=== PATIENT | female | born 1950 | race Caucasian/White ===

== ENCOUNTER 2017-07-08 08:33 | Outpatient (CLI) | payer MEDICARE, BC ==
[2017-07-08 12:20] LABS: BASOPHILS % (AUTO) 0.9 %; EOSINOPHILS # (AUTO) 0.1 10^3/uL (0.0-0.7); EOSINOPHILS % (AUTO) 2.8 %; HCT - HEMATOCRIT 40.4 % (37.0-47.0); HGB - HEMOGLOBIN 13.4 g/dL (12.0-16.0); LYMPHOCYTES # (AUTO) 1.2 10^3/uL (1.5-3.5); LYMPHOCYTES % (AUTO) 30.6 %; MEAN CORPUSCULAR HEMOGLOBIN 30.1 pg (27.0-31.0); MEAN CORPUSCULAR HGB CONC 33.2 g/dL (32.0-36.0); MEAN CORPUSCULAR VOLUME 90.9 fL (81.0-99.0); MONOCYTES # (AUTO) 0.4 10^3/uL (0.0-1.0); MONOCYTES % (AUTO) 8.9 %; NEUTROPHILS # (AUTO) 2.3 10^3/uL (1.5-6.6); NEUTROPHILS % (AUTO) 56.8 %; NUCLEATED RED BLOOD CELLS AUTO 0.1 /100WBC; RED BLOOD COUNT 4.45 10^6/uL (4.20-5.40); RED CELL DISTRIBUTION WIDTH 13.9 % (12.0-15.0); UNCORRECTED WHITE BLOOD COUNT 4.1 x10^3/uL; WHITE BLOOD COUNT 4.1 x10^3/uL (4.8-10.8)
[2017-07-08 12:42] LABS: ALBUMIN/GLOBULIN RATIO 1.4 (1.0-2.2); BILIRUBIN,TOTAL 1.3 mg/dL (0.2-1.0); BUN - BLOOD UREA NITROGEN 22 mg/dL (6-20); CALCIUM 9.1 mg/dL (8.5-10.3); CARBON DIOXIDE - CO2 27 mmol/L (21-32); CHLORIDE 105 mmol/L (101-111); CHOL/HDL RATIO 2.5 (<4.4); CHOLESTEROL 184 mg/dL; CREATININE 0.7 mg/dL (0.4-1.0); GFR - MDRD 84 (>89); GLUCOSE 97 mg/dL (70-100); HDL CHOLESTEROL 74 mg/dL; LDL/HDL RATIO 1.3 (<4.4); POTASSIUM 3.6 mmol/L (3.5-5.0); SODIUM 139 mmol/L (135-145); TOTAL PROTEIN 7.8 g/dL (6.7-8.2); TRIGLYCERIDES 67 mg/dL; VLDL CHOLESTEROL 13 mg/dL
== END 2017-07-08 08:34 | disposition home or self-care (01) ==
LOC: LAB.F 08:33
PROVIDERS: ATTEND Internal Medicine
DX: D89.89 Other specified disorders involving the immune mechanism, not elsewhere classified (principal); E78.5 Hyperlipidemia, unspecified; E04.9 Nontoxic goiter, unspecified; Z72.89 Other problems related to lifestyle
CPT/HCPCS: 36415; 80053; 80061; 85025; 86803

== ENCOUNTER 2017-07-23 13:48 | Outpatient (CLI) | payer MEDICARE, BC ==
--- NOTE | 2017-07-28 13:27 | Mammography Report ---
DATE OF SERVICE: 07/23/2017 DIGITAL SCREENING MAMMOGRAM: 07/23/2017 CLINICAL INDICATION: A 67-year-old, with history of late childbearing, family history of breast canc er, history of benign biopsy, for screening. COMPARISON: 07/2016, 07/2015, 04/2014, 01/2013, 12/2011, 11/2010, 11/2009. TECHNIQUE: Routine CC and MLO projections were obtained of the breasts. FINDINGS: The breasts again demonstrate heterogeneously dense fibroglandular parenchyma bilaterally. Coarse and punctate, typically benign calcifications are present. Post-biopsy changes in the right breast a re stable. No suspicious masses, clustered microcalcifications, or regions of architectural distortion are identified. IMPRESSION: Benign findings. RECOMMENDATIONS: Routine annual screening unless otherwise clinically indicated. BIRADS category 2 - Benign findings. STANDARD QUALIFYING STATEMENTS 1. This examination was reviewed with the aid of Computed-Aided Detection (CAD). 2. A negative or benign imaging report should not delay biopsy if clinically suspicious findings are present. Consider surgical consultation if warranted. More than 5% of cancers are not identified by imaging. 3. Dense breasts may obscure an underlying neoplasm. TD: 07/27/2017 19:00
== END 2017-07-23 13:49 | disposition home or self-care (01) ==
LOC: DI.S 13:48
PROVIDERS: ATTEND Internal Medicine
DX: Z12.31 Encounter for screening mammogram for malignant neoplasm of breast (principal); Z80.3 Family history of malignant neoplasm of breast
CPT/HCPCS: 77067

== ENCOUNTER 2018-01-03 15:31 | Outpatient (CLI) | payer MEDICARE, BC ==
[2018-01-03 15:53] LABS: BASOPHILS % (AUTO) 0.2 %; HGB - HEMOGLOBIN 13.3 g/dL (12.0-16.0); LYMPHOCYTES # (AUTO) 0.5 10^3/uL (1.5-3.5); LYMPHOCYTES % (AUTO) 4.2 %; MEAN CORPUSCULAR HGB CONC 33.6 g/dL (32.0-36.0); MEAN CORPUSCULAR VOLUME 89.4 fL (81.0-99.0); MEAN PLATELET VOLUME 8.2 fL (7.9-10.8); MONOCYTES # (AUTO) 0.5 10^3/uL (0.0-1.0); MONOCYTES % (AUTO) 3.9 %; NEUTROPHILS # (AUTO) 11.3 10^3/uL (1.5-6.6); NEUTROPHILS % (AUTO) 91.7 %; PLT - PLATELET COUNT 203 10^3/uL (130-450); RED BLOOD COUNT 4.43 10^6/uL (4.20-5.40); RED CELL DISTRIBUTION WIDTH 13.3 % (12.0-15.0); WHITE BLOOD COUNT 12.3 x10^3/uL (4.8-10.8)
[2018-01-03 16:03] LABS: ALBUMIN 3.5 g/dL (3.2-5.5); ALBUMIN/GLOBULIN RATIO 0.7 (1.0-2.2); BILIRUBIN,TOTAL 1.6 mg/dL (0.2-1.0); CALCIUM 8.8 mg/dL (8.5-10.3); CREATININE 1.1 mg/dL (0.4-1.0); TOTAL PROTEIN 8.2 g/dL (6.7-8.2)
--- NOTE | 2018-01-03 19:56 | XRAY Report ---
CHEST X-RAY TWO VIEWS: 01/03/2018 HISTORY: Fever. COMPARISON: None. FINDINGS: There is a large area of airspace disease in the right upper lobe consistent with pneumonia. Followup to complete clearing to exclude other underlying processes is suggested. The left lung is clear. There is no pleural effusion or pneumothorax. Heart size is top normal. There is moderately severe degenerative change in the spine with a thoracolumbar junction dextroscoliosis. IMPRESSION: RIGHT UPPER LOBE PNEUMONIA. FOLLOWUP TO COMPLETE RADIOGRAPHIC CLEARING IS SUGGESTED. TD: 01/03/2018 16:16
== END 2018-01-03 15:32 | disposition home or self-care (01) ==
LOC: LAB 15:31
PROVIDERS: ATTEND Internal Medicine
DX: R50.9 Fever, unspecified (principal); J18.9 Pneumonia, unspecified organism
CPT/HCPCS: 36415; 71046; 80053; 85025; 87040

== ENCOUNTER 2018-01-05 15:17 | Outpatient (CLI) | payer MEDICARE, BC ==
[2018-01-05 17:57] LABS: BASOPHILS % (AUTO) 0.4 %; EOSINOPHILS % (AUTO) 0.4 %; HGB - HEMOGLOBIN 12.2 g/dL (12.0-16.0); LYMPHOCYTES # (AUTO) 0.7 10^3/uL (1.5-3.5); LYMPHOCYTES % (AUTO) 8.1 %; MEAN CORPUSCULAR HEMOGLOBIN 29.9 pg (27.0-31.0); MEAN CORPUSCULAR HGB CONC 33.5 g/dL (32.0-36.0); MEAN CORPUSCULAR VOLUME 89.2 fL (81.0-99.0); MEAN PLATELET VOLUME 8.9 fL (7.9-10.8); MONOCYTES # (AUTO) 0.4 10^3/uL (0.0-1.0); NEUTROPHILS % (AUTO) 86.1 %; PLT - PLATELET COUNT 204 10^3/uL (130-450); RED BLOOD COUNT 4.07 10^6/uL (4.20-5.40); RED CELL DISTRIBUTION WIDTH 13.4 % (12.0-15.0); WHITE BLOOD COUNT 8.1 x10^3/uL (4.8-10.8)
[2018-01-05 18:08] LABS: ALBUMIN 2.8 g/dL (3.2-5.5); ALBUMIN/GLOBULIN RATIO 0.6 (1.0-2.2); BILIRUBIN,TOTAL 0.8 mg/dL (0.2-1.0); CALCIUM 8.3 mg/dL (8.5-10.3); CREATININE 0.9 mg/dL (0.4-1.0); TOTAL PROTEIN 7.4 g/dL (6.7-8.2)
== END 2018-01-05 15:18 | disposition home or self-care (01) ==
LOC: LAB.F 15:17
PROVIDERS: ATTEND Physician Assistant Medical
DX: J18.9 Pneumonia, unspecified organism (principal)
CPT/HCPCS: 36415; 80053; 85025

== ENCOUNTER 2018-01-10 14:13 | Outpatient (CLI) | payer MEDICARE, BC ==
[2018-01-10 18:44] LABS: ALBUMIN 3.2 g/dL (3.2-5.5); ALBUMIN/GLOBULIN RATIO 0.7 (1.0-2.2); BILIRUBIN,TOTAL 0.8 mg/dL (0.2-1.0); CALCIUM 8.6 mg/dL (8.5-10.3); CREATININE 0.7 mg/dL (0.4-1.0); TOTAL PROTEIN 7.9 g/dL (6.7-8.2)
== END 2018-01-10 14:14 | disposition home or self-care (01) ==
LOC: LAB.S 14:13
PROVIDERS: ATTEND Physician Assistant Medical
DX: J18.9 Pneumonia, unspecified organism (principal); E87.6 Hypokalemia
CPT/HCPCS: 36415; 80053

== ENCOUNTER 2018-01-18 12:37 | Outpatient (CLI) | payer MEDICARE, BC ==
--- NOTE | 2018-01-18 16:21 | XRAY Report ---
Procedure Date: 01/18/2018 Accession Number: [id number] / [id number] Procedure: XR - Chest 2 View X-Ray CPT Code: 61327 FULL RESULT: EXAM: Chest 2 View X-Ray DATE: 01/18/2018 1:25 PM CLINICAL HISTORY: COMMUNITY ACQUIRED PNEUMONIA for follow-up COMPARISON: 01/03/2018 TECHNIQUE: 2 views. FINDINGS: Lungs/Pleura: Improved aeration right upper lobe with minimal residual infiltrate versus scarring still present.. Clear left lung. No pneumothorax or pleural effusion. Normal volumes. Mediastinum: Heart size normal. Mild residual deformity right hilum.. Other: Thoracolumbar junction dextroscoliosis with degenerative change. IMPRESSION: Significantly improved chest x-ray compared with 01/03/2018. Residual right upper lobe and hilar changes are still present, question scarring versus residual infiltrate. Suggest follow up repeat chest x-ray in 4-6 weeks.. RADIA
== END 2018-01-18 12:38 | disposition home or self-care (01) ==
LOC: DI 12:37
PROVIDERS: ATTEND Physician Assistant Medical
DX: J18.9 Pneumonia, unspecified organism (principal)
CPT/HCPCS: 71046

== ENCOUNTER 2018-03-01 13:25 | Outpatient (CLI) | payer MEDICARE, BC ==
--- NOTE | 2018-03-01 15:58 | XRAY Report ---
Procedure Date: 03/01/2018 Accession Number: [id number] / [id number] Procedure: XR - Chest 2 View X-Ray CPT Code: 54551 FULL RESULT: EXAM: Chest 2 View X-Ray DATE: 03/01/2018 2:20 PM CLINICAL HISTORY: COMMUNITY ACQUIRED PNEUMONIA COMPARISON: 01/18/2018. TECHNIQUE: 2 views. FINDINGS: Lungs/Pleura: No focal opacities evident. No pneumothorax or pleural effusion. Normal volumes. Mediastinum: Heart and mediastinal contours are unremarkable. Other: None. IMPRESSION: Interval resolution of previously seen consolidation. Normal study. RADIA
== END 2018-03-01 13:26 | disposition home or self-care (01) ==
LOC: DI 13:25
PROVIDERS: ATTEND Physician Assistant Medical
DX: J18.9 Pneumonia, unspecified organism (principal)
CPT/HCPCS: 71046

== ENCOUNTER 2018-08-08 08:46 | Day surgery (SDC) | payer MEDICARE, BC ==
[2018-08-08] MEDS ORDERED: LACTATED RINGERS 1,000 ML IV ONE (09:05)
[2018-08-08] MEDS ORDERED: fentaNYL 250 MCG/5 ML VIAL IVP ONE (09:19)
[2018-08-08] MEDS ORDERED: MIDAZOLAM 2 MG/2 ML VIAL IVP ONE (09:19)
[2018-08-08 10:22] VITALS: BP 96/54
== END 2018-08-08 08:47 | disposition home or self-care (01) ==
LOC: SDS 08:46
PROVIDERS: ATTEND Surgery
PROC: 0DJD8ZZ Inspection of Lower Intestinal Tract, Via Natural or Artificial Opening Endoscopic (ICD-10-PCS; principal; 2018-08-08 09:45)
DX: Z12.11 Encounter for screening for malignant neoplasm of colon (principal); K64.8 Other hemorrhoids; M35.9 Systemic involvement of connective tissue, unspecified; E78.00 Pure hypercholesterolemia, unspecified; Z79.82 Long term (current) use of aspirin
CPT/HCPCS: G0121; J7120

== ENCOUNTER 2018-09-20 11:05 | Outpatient (CLI) | payer MEDICARE, BC ==
[2018-09-20 18:01] LABS: BASOPHILS # (AUTO) 0.1 10^3/uL (0.0-0.1); BASOPHILS % (AUTO) 1.3 %; EOSINOPHILS # (AUTO) 0.2 10^3/uL (0.0-0.7); HGB - HEMOGLOBIN 12.9 g/dL (12.0-16.0); LYMPHOCYTES # (AUTO) 1.3 10^3/uL (1.5-3.5); MEAN CORPUSCULAR HEMOGLOBIN 30.4 pg (27.0-31.0); MEAN CORPUSCULAR HGB CONC 32.8 g/dL (32.0-36.0); MEAN CORPUSCULAR VOLUME 92.8 fL (81.0-99.0); MEAN PLATELET VOLUME 8.3 fL (7.9-10.8); MONOCYTES # (AUTO) 0.3 10^3/uL (0.0-1.0); MONOCYTES % (AUTO) 7.1 %; NEUTROPHILS # (AUTO) 2.8 10^3/uL (1.5-6.6); NEUTROPHILS % (AUTO) 59.6 %; PLT - PLATELET COUNT 239 10^3/uL (130-450); RED BLOOD COUNT 4.24 10^6/uL (4.20-5.40); RED CELL DISTRIBUTION WIDTH 14.1 % (12.0-15.0); WHITE BLOOD COUNT 4.6 x10^3/uL (4.8-10.8)
[2018-09-20 18:18] LABS: ALBUMIN 4.1 g/dL (3.2-5.5); ALBUMIN/GLOBULIN RATIO 1.2 (1.0-2.2); ALKALINE PHOSPHATASE 75 IU/L (42-121); ALT ALANINE AMINOTRANSFERASE 14 IU/L (10-60); AST ASPARTATE AMINOTRANSFERASE 21 IU/L (10-42); BILIRUBIN,TOTAL 1.2 mg/dL (0.2-1.0); BUN - BLOOD UREA NITROGEN 16 mg/dL (6-20); CALCIUM 8.9 mg/dL (8.5-10.3); CARBON DIOXIDE - CO2 25 mmol/L (21-32); CHLORIDE 100 mmol/L (101-111); CHOL/HDL RATIO 2.5 (<4.4); CHOLESTEROL 162 mg/dL; CREATININE 0.7 mg/dL (0.4-1.0); GFR - MDRD 84 (>89); GLUCOSE 82 mg/dL (70-100); HDL CHOLESTEROL 65 mg/dL; LDL CHOLESTEROL,CALCULATED 89 mg/dL; LDL/HDL RATIO 1.4 (<4.4); SODIUM 137 mmol/L (135-145); TOTAL PROTEIN 7.4 g/dL (6.7-8.2); VLDL CHOLESTEROL 8 mg/dL
== END 2018-09-20 11:06 | disposition home or self-care (01) ==
LOC: LAB.F 11:05
PROVIDERS: ATTEND Internal Medicine
DX: E87.6 Hypokalemia (principal); E78.5 Hyperlipidemia, unspecified; D89.89 Other specified disorders involving the immune mechanism, not elsewhere classified; Z79.899 Other long term (current) drug therapy; E04.9 Nontoxic goiter, unspecified
CPT/HCPCS: 36415; 80053; 80061; 83721; 84443; 85025

== ENCOUNTER 2019-06-05 08:32 | Outpatient (CLI) | payer MEDICARE, OTHER | END 2019-06-05 08:33 | disposition home or self-care (01) | LOC: LAB.S 08:32 | PROVIDERS: ATTEND Family Medicine | DX: Z02.1 Encounter for pre-employment examination (principal) | CPT/HCPCS: 36415; 86735; 86762; 86765; 86787 ==

== ENCOUNTER 2020-11-07 14:31 | Outpatient (CLI) | payer MEDICARE, OTHER ==
--- NOTE | 2020-11-07 16:28 | DEXA Report ---
PROCEDURE: Dexa Spine and/or Hip INDICATIONS: POST MENOPAUSAL TECHNIQUE: Dual energy x-ray absorptiometry (DXA) was performed on a [employer] System. Regions measur ed are the AP Spine, femoral neck, and if needed forearm. COMPARISON: None. FINDINGS: Lumbar Spine: Bone Mineral Density 1.077 g/cm/cm,T score -0.9, normal Left Hip: Bone Mineral Density 0.798 g/cm/cm,T score -1.7, osteopenia Left Femoral Neck: Bone Mineral Density 0.828 g/cm/cm, T score -1.5, osteopenia (T score greater or equal to -1.0: NORMAL) (T score from -1.1 to -2.4: OSTEOPENIA) (T score less than or equal to -2.5 to: OSTEOPOROSIS) Impression: Osteopenia. Patients with diagnosis of osteoporosis or osteopenia should have regular bone mineral density assess ment. For those eligible for Medicare, routine testing is allowed once every 2 years. Testing frequ ency can be increased for patients who have rapidly progressing disease or for those who are receivin g medical therapy to restore bone mass. Reviewed by: Lorena Don MD, PhD on 11/07/2020 4:27 PM PDT Approved by: Lorena Don MD, PhD on 11/07/2020 4:27 PM PDT Station ID: [id number]
== END 2020-11-07 14:32 | disposition home or self-care (01) ==
LOC: DI 14:31
PROVIDERS: ATTEND Family Medicine
DX: M85.89 Other specified disorders of bone density and structure, multiple sites (principal)

== ENCOUNTER 2020-11-13 14:57 | Outpatient (CLI) | payer MEDICARE, OTHER ==
--- NOTE | 2020-11-15 12:37 | Mammography Report ---
BILATERAL DIGITAL SCREENING MAMMOGRAM 3D/2D: 11/13/2020 CLINICAL: Family history of breast cancer. Family history of breast cancer. Comparison is made to exams dated: 07/23/2017 mammogram, 07/20/2016 mammogram, and 07/06/2015 mammogr am - [facility]. The tissue of both breasts is heterogeneously dense. This may low er the sensitivity of mammography. There is a possible mass in the left breast at 12 o'clock middle depth. No other significant masses, calcifications, or other findings are seen in either breast. IMPRESSION: INCOMPLETE: NEEDS ADDITIONAL IMAGING EVALUATION The possible mass in the left breast is indeterminate. Additional views with possible ultrasound are recommended. This exam was interpreted at Station ID: [id number]. NOTE: For mammograms, a report in lay terms will be sent to the patient. Approximately 15% of breast malignancies will not be visualized mammographically. In the management of a palpable breast mass, a negative mammogram must not discourage biopsy of a clinically suspicious lesion. Electronically Signed By: Lb sanchez/graham:11/14/2020 09:35:02 ACR BI-RADS Category 0: Incomplete 3340F PARENCHYMAL PATTERN: (D) - The breast(s) demonstrate(s) heterogeneously dense fibroglandular almas rodriguez. BI-RADS CATEGORY: (0) - 0 Mammo and US [id number] Immediate follow-up LATERALITY: (L)
== END 2020-11-13 14:58 | disposition home or self-care (01) ==
LOC: DI.S 14:57
DX: Z12.31 Encounter for screening mammogram for malignant neoplasm of breast (principal); Z80.3 Family history of malignant neoplasm of breast; N64.89 Other specified disorders of breast

== ENCOUNTER 2020-12-10 09:24 | Outpatient (CLI) | payer MEDICARE, OTHER ==
--- NOTE | 2020-12-12 08:30 | Ultrasound Report ---
LIMITED ULTRASOUND OF LEFT BREAST AND AXILLA: 12/10/2020 CLINICAL: Patient returns today to evaluate a focal asymmetry in the left breast. Comparison is made to exams dated: 12/10/2020 mammogram, 11/13/2020 mammogram, 07/23/2017 mammogram, 1 09/20/2015 mammogram, 07/06/2015 mammogram, and 04/16/2014 mammogram - [facility]. Color flow ultrasound of the left breast 12 o'clock, and axilla regions was performed on the areas o f interest. Herr scale images of the real-time examination were reviewed. There is a 1 cm x 0.8 cm x 0.9 cm oval mass with a circumscribed and microlobulated margin in the lef t breast at 12 o'clock middle depth 5 cm from the nipple. This oval mass is hypoechoic. This correl ates with mammography findings. Color flow imaging demonstrates that there is vascularity present. No suspicious enlarged lymph nodes were seen sonographically in the left axilla. IMPRESSION: SUSPICIOUS OF MALIGNANCY The 1 cm x 0.8 cm x 0.9 cm oval mass in the left breast is suspicious of malignancy. An ultrasound g uided biopsy is recommended. The findings were discussed with the patient at the conclusion of the study by Dr. Puente. This exam was interpreted at Station ID: [id number]. Electronically Signed By: Shane Collins M.D. ddp/:12/10/2020 10:38:57 Ultrasound BI-RADS: 4 Suspicious for malignancy BI-RADS CATEGORY: (4) - 4 None [id number] Immediate follow-up LATERALITY: ()
--- NOTE | 2020-12-12 08:30 | Mammography Report ---
UNILATERAL LEFT DIGITAL DIAGNOSTIC MAMMOGRAM 3D/2D: 12/10/2020 CLINICAL: Patient returns today to evaluate a focal asymmetry in the left breast. Comparison is made to exams dated: 11/13/2020 mammogram, 07/23/2017 mammogram, 07/20/2016 mammogram, 07/06/2015 mammogram, and 04/16/2014 mammogram - [facility]. The tissue of left [address] is heterogeneously dense. This may lower the sensitivity of mammography. There is a 1 cm oval equal density mass with a circumscribed margin in the left breast at 12 o'clock middle depth. No other significant masses or calcifications are seen in the breast. IMPRESSION: INCOMPLETE: NEEDS ADDITIONAL IMAGING EVALUATION The 1 cm oval equal density mass in the left breast is indeterminate. An ultrasound is recommended. Ultrasound will be performed immediately following the current exam. This exam was interpreted at Station ID: [id number]. NOTE: For mammograms, a report in lay terms will be sent to the patient. Approximately 15% of breast malignancies will not be visualized mammographically. In the management of a palpable breast mass, a negative mammogram must not discourage biopsy of a clinically suspicious lesion. Electronically Signed By: Shane Collins M.D. ddp/:12/10/2020 10:13:11 ACR BI-RADS Category 0: Incomplete 3340F PARENCHYMAL PATTERN: (D) - The breast(s) demonstrate(s) heterogeneously dense fibroglandular parjorgey ma. BI-RADS CATEGORY: (0) - 0 Ultrasound [id number] Immediate follow-up LATERALITY: (B)
== END 2020-12-10 09:25 | disposition home or self-care (01) ==
LOC: DI 09:24
PROVIDERS: ATTEND Family Medicine
DX: N63.25 Unspecified lump in the left breast, overlapping quadrants (principal)

== ENCOUNTER 2020-12-19 12:28 | Outpatient (CLI) | payer MEDICARE, OTHER ==
[~2020-12-19 12:28] MED LIST: BUFFERED LIDOCAINE 10 ML SYRINGE ONE; LIDOCAINE MPF 1%-EPI 1:200000 30 ML VIAL ONE
[2020-12-19] MEDS ORDERED: BUFFERED LIDOCAINE 10 ML SYRINGE IU ONE (15:50)
[2020-12-19] MEDS ORDERED: LIDOCAINE MPF 1%-EPI 1:200000 30 ML VIAL SUBQ ONE (16:00)
--- NOTE | 2020-12-23 11:51 | Ultrasound Report ---
ULTRASOUND GUIDED BIOPSY LEFT BREAST USING VACUUM DEVICE WITH POST ULTRASOUND IMAGIN12/19/2020 CLINICAL: Left breast mass. PATIENT CONSENT: Risks (minor bleeding, infection, vasovagal reaction and repeat procedure), benefits and alternatives were explained to the patient and written informed consent was obtained. Correlation is made to exams dated: 12/10/2020 ultrasound, 12/10/2020 mammogram, 11/13/2020 mammogram, 07/23/2017 mammogram, 07/20/2016 mammogram, and 07/06/2015 mammogram - [facility]. An ultrasound guided biopsy using real-time ultrasound was performed for the abnormality located in t he left breast at 12 o'clock posterior depth. The skin was prepped in the usual manner. A biopsy ne edle was placed adjacent to the abnormality under ultrasound guidance. Once the needle was documente d to be in the correct location, 5 specimen wereobtained using an automated biopsy gun. The specimen was sent to the laboratory for pathological analysis. IMPRESSION: ULTRASOUND GUIDED BIOPSY MALIGNANT Ultrasound guided biopsy of the mass in the left breast posterior depth was successful. Post biopsy clip could not be placed (the hospital was out of the biopsy marker device). The lesion is readily vi sible on ultraound, and ultrasound-guided wire localization could be performed prior to surgical exci duran. Pathology indicates malignant invasive ductal carcinoma. Pathology results are concordant with imaging findings. A surgical/oncologic consultation is recommended. This exam was interpreted at Station ID: [id number]. Fadia Schwarz M.D. fx,ar/:12/23/2020 09:55:32 BI-RADS CATEGORY: () - Unspecified - other recall n/a LATERALITY: (B)
== END 2020-12-19 12:29 | disposition home or self-care (01) ==
LOC: DI 12:28
PROVIDERS: ATTEND Family Medicine
DX: C50.812 Malignant neoplasm of overlapping sites of left female breast (principal); Z17.0 Estrogen receptor positive status [ER+]
CPT/HCPCS: 19083; 88305; 88360

== ENCOUNTER 2021-02-07 13:07 | Outpatient (CLI) | payer MEDICARE, OTHER ==
--- NOTE | 2021-02-10 07:08 | Ultrasound Report ---
LIMITED ULTRASOUND OF LEFT BREAST AND AXILLA: 02/07/2021 CLINICAL: Patient returns today to evaluate a focal asymmetry in the left breast seen by MRI 01-25-21. Comparison is made to exams dated: 12/19/2020 ultrasound biopsy, 12/10/2020 ultrasound, 12/10/2020 mamm ogram, 11/13/2020 mammogram, 07/23/2017 mammogram, and 07/20/2016 mammogram - [facility]. Color flow and real-time ultrasound of the left breast 3-5 o'clock, and axilla regions were performe d on the areas of interest. Herr scale images of the real-time examination were reviewed. There is a 1.7 cm x 1.2 cm x 1.7 cm irregular mass with an indistinct margin in the left breast at 4 o'clock anterior depth. This irregular mass is hypoechoic. This correlates with breast MRI findings . Color flow imaging demonstrates that there is an adjacent vascularity. There also is a lymph node with eccentric cortical thickening measuring up to 0.5 cm in the left axil la. This lymph node is of mixed echogenicity. Color flow imaging demonstrates that there is vascula rity present. IMPRESSION: SUSPICIOUS OF MALIGNANCY The 1.7 cm x 1.2 cm x 1.7 cm irregular mass in the left breast at 4 o'clock anterior depth is suspici ous of malignancy. An ultrasound guided biopsy is recommended. The lymph node with eccentric cortical thickening in the left axillary tail is suspicious of malignan cy. An ultrasound guided biopsy is recommended. The findings were discussed with the patient at the conclusion of the study by Dr. Garcia. This exam was interpreted at Station ID: [id number]. Electronically Signed By: Shane Collins M.D. ddp/:02/07/2021 15:31:36 Ultrasound BI-RADS: 4 Suspicious for malignancy BI-RADS CATEGORY: (4) - 4 None [id number] Immediate follow-up LATERALITY: ()
== END 2021-02-07 13:08 | disposition home or self-care (01) ==
LOC: DI 13:07
PROVIDERS: ATTEND Surgery
DX: C50.919 Malignant neoplasm of unspecified site of unspecified female breast (principal)

== ENCOUNTER 2021-02-14 12:52 | Outpatient (CLI) | payer MEDICARE, OTHER ==
[2021-02-14] MEDS ORDERED: BUFFERED LIDOCAINE 10 ML SYRINGE ONE (13:19)
[2021-02-14] MEDS ORDERED: LIDOCAINE MPF 1%-EPI 1:200000 30 ML VIAL ONE (13:19)
[2021-02-14] MEDS ORDERED: BUFFERED LIDOCAINE 10 ML SYRINGE IU ONE (16:19)
[2021-02-14] MEDS ORDERED: LIDOCAINE MPF 1%-EPI 1:200000 30 ML VIAL SUBQ ONE (17:00)
--- NOTE | 2021-02-17 08:15 | Mammography Report ---
UNILATERAL LEFT DIGITAL DIAGNOSTIC MAMMOGRAM 3D/2D: 02/14/2021 CLINICAL: Post left breast ultrasound biopsy, clip placment imaging. Comparison is made to exams dated: 02/07/2021 ultrasound - [facility], 01/25/2021 maurilio ast MRI - [facility], 12/19/2020 ultrasound biopsy, 12/10/2020 ultrasound, 12/10/2020 mammogram, and 11/13/2020 mammogram - [facility]. The tissue of left breast is heterogeneousl y dense. This may lower the sensitivity of mammography. There is a marker clip in the appropriate position in the left breast 4 oclock seen on the craniocaud al view only. This marker clip placement is at the biopsy site. IMPRESSION: POST PROCEDURE MAMMOGRAM FOR MARKER PLACEMENT There was a successful marker clip placement in the left breast 4 oclock seen on the craniocaudal vie w only. This exam was interpreted at Station ID: [id number]. NOTE: For mammograms, a report in lay terms will be sent to the patient. Approximately 15% of breast malignancies will not be visualized mammographically. In the management of a palpable breast mass, a negative mammogram must not discourage biopsy of a clinically suspicious lesion. Electronically Signed By: Emily Puente M.D. [facility]/:02/14/2021 16:34:16 ACR BI-RADS Category Post-procedure mammogram for marker placement PARENCHYMAL PATTERN: (D) - The breast(s) demonstrate(s) heterogeneously dense fibroglandular almas rodriguez. BI-RADS CATEGORY: () - Unspecified - other recall n/a LATERALITY: (B)
--- NOTE | 2021-02-18 11:15 | Ultrasound Report ---
ULTRASOUND GUIDED BIOPSY LEFT BREAST WITH MARKING DEVICE INSERTED: 02/14/2021 CLINICAL: Left breast mass. PATIENT CONSENT: Risks (minor bleeding, infection, vasovagal reaction and repeat procedure), benefits and alternatives were explained to the patient and written informed consent was obtained. Correlation is made to exams dated: 02/07/2021 ultrasound - [facility] and 01/25/2021 breast MRI - [facility]. An ultrasound guided biopsy using real-time ultrasound was performed for the microlobulated irregular shaped mass located in the left breast at 4 o'clock. This was described on the previous mammography , ultrasound, and MRI reports. The skin was prepped in the usual manner. Topical and local anesthet ic was administered to the access site. A small incision was made in the breast. The abnormality wa s approached from the lateral aspect. A biopsy needle was placed adjacent to the abnormality under u ltrasound guidance. Once the needle was documented to be in the correct location, a specimen was obt ained using a BARD biopsy device. A titanium clip was inserted into the biopsy cavity. The specimen was sent to the laboratory for pathological analysis. It is noted that the axillary lymph node was not biopsied, secondary to lack of safe access due to vessel surrounding the node. IMPRESSION: ULTRASOUND GUIDED BIOPSY BENIGN Ultrasound guided biopsy of the mass in the left breast at 4 o'clock was successful. Pathology indica christina benign fibrous mastopathy. Pathology results are possibly discordant with MRI findings. Given nayeli rankin's history of biopsy proven malignancy at the 12 o'clock position, an MRI guided biopsy is recom mended to exclude an additional focus of disease at the 4 o'clock position. Findings were communicated to Dr. Pedro's office on 02/18/21 at 9:50 AM. This exam was interpreted at Station ID: [id number]. Emily Collins M.D. [facility],ddp/:02/18/2021 09:53:22 BI-RADS CATEGORY: () - None [id number] Immediate follow-up LATERALITY: ()
== END 2021-02-14 12:53 | disposition home or self-care (01) ==
LOC: DI 12:52
PROVIDERS: ATTEND Surgery
DX: R92.8 Other abnormal and inconclusive findings on diagnostic imaging of breast (principal); C50.812 Malignant neoplasm of overlapping sites of left female breast; Z17.0 Estrogen receptor positive status [ER+]
CPT/HCPCS: 19083; 38505

== ENCOUNTER 2021-04-14 08:03 | Observation (INO) | payer MEDICARE, OTHER ==
[2021-04-14] MEDS ORDERED: LACTATED RINGERS 1,000 ML IV ONE (08:25)
[2021-04-14] MEDS ORDERED: BUFFERED LIDOCAINE 10 ML SYRINGE ONE (08:28)
[2021-04-14] MEDS ORDERED: REGADENOSON 0.4 MG/5 ML SYRINGE IVP ONE (09:21)
[2021-04-14] MEDS ORDERED: CEFAZOLIN SODIUM IN 0.9 % NACL 0 GM/0 ML BAG IV ONE (09:28)
[2021-04-14] MEDS ORDERED: SODIUM CHLORIDE 0.9% 1,000 ML IV ONE (11:55)
[2021-04-14] MEDS ORDERED: SODIUM CHLORIDE FLUSH 0.9% 10 ML SYRINGE IVP PRN (12:07)
[2021-04-14] MEDS ORDERED: LEVOCETIRIZINE DIHYDROCHLORIDE 5 MG PO PRN (12:11)
--- NOTE | 2021-04-14 12:15 | SURGERY HX AND PHYSICAL(T) ---
Surgical History & Physical - Chief Complaint/HPI Chief Complaint: Lily is a very pleasant 71-year-old lady who was admitted this morning to - PMH/PSH/Social Hx Does the pt have a hx of MRSA?: No Eyes, Ears, Nose, Throat: None Cardiovascular: High cholesterol Respiratory: None Skin: None Endocrine/Autoimmune: Other Gastrointestinal: GERD Urinary: None Musculoskeletal: Osteoarthritis, Rheumatoid arthritis, Chronic back pain Psychiatric: None General: Colonoscopy Orthopedic: Knee replacement Eyes Ears Nose Throat (EENT): Cataracts Smoking Status: Never smoker - Home Meds and Allergies Home Medications: Calcium Citrate/Vitamin D3 [Citracal-Vit D3 200 mg-250 Tab] 1 tab PO BID 08/08/18 Hydroxychloroquine [Plaquenil] 200 mg PO DAILY 08/08/18 Omeprazole 40 mg PO DAILY 03/05/21 Pravastatin [Pravachol] 40 mg PO DAILY 03/05/21 Levocetirizine Dihydrochloride [Xyzal] 1 tab PO PRN PRN 04/14/21 Allergies/Adverse Reactions: Allergies Allergy/AdvReac Type Severity Reaction Status Date / Time Sulfa (Sulfonamide AdvReac Edema Verified 04/14/21 08:46 Antibiotics) - Review of Systems Neurological: Dizziness, Syncope, Weakness - Vital Signs Heart Rate: 72 Blood Pressure: 97/53 Temperature: 36.6 C Respiratory Rate: 17 O2 Saturation: 95 Weight (kg): 82 kg Height: 1.63 m - Physical Exam General Appearance: positive: No acute distress, Alert Eyes Bilatera: positive: Normal inspection, PERRL, EOMI ENT: positive: ENT inspection nml, Pharynx nml, No signs of dehydration Neck: positive: Nml inspection, Thyroid nml, No JVD Respiratory: positive: Chest non-tender, No respiratory distress, Breath sounds nml Cardiovascular: positive: Regular rate & rhythm, Bradycardia Peripheral Pulses: positive: 0 Abdomen: positive: Non-tender, Nml bowel sounds Back: positive: Nml inspection. negative: CVA tenderness (R), CVA tenderness (L) Skin: positive: Color nml Extremities: positive: Non-tender Neurologic/Psychiatric: positive: Oriented x3 - Patient Review Patient Review: Problems were reviewed with the patient during this visit. Medications were reviewed with the patient during this visit. Allergies were reviewed this patient during this visit. Pertinent Tests Reviewed: All pertitent test for this patient were reviewed. - Assessment & Plan Assessment and Plan: Syncope during radiologic procedure prior to operative intervention for left breast cancer. I have already spoken with Dr. Viktoriya Laird. Surgery is deb eduled for tomorrow pending cardiac evaluation.She will be admitted on telemetry.
[2021-04-14] MEDS ORDERED: BUFFERED LIDOCAINE 10 ML SYRINGE IU ONE (12:24)
[2021-04-14 12:49] LABS: BASOPHILS % (AUTO) 0.7 %; EOSINOPHILS # (AUTO) 0.1 10^3/uL (0.0-0.7); EOSINOPHILS % (AUTO) 2.3 %; HCT - HEMATOCRIT 38.3 % (37.0-47.0); HGB - HEMOGLOBIN 12.3 g/dL (12.0-16.0); LYMPHOCYTES # (AUTO) 0.9 10^3/uL (1.5-3.5); LYMPHOCYTES % (AUTO) 14.2 %; MEAN CORPUSCULAR HEMOGLOBIN 29.6 pg (27.0-31.0); MEAN CORPUSCULAR HGB CONC 32.1 g/dL (32.0-36.0); MEAN CORPUSCULAR VOLUME 92.3 fL (81.0-99.0); MEAN PLATELET VOLUME 9.4 fL (7.9-10.8); MONOCYTES # (AUTO) 0.5 10^3/uL (0.0-1.0); MONOCYTES % (AUTO) 7.9 %; NEUTROPHILS # (AUTO) 4.5 10^3/uL (1.5-6.6); NEUTROPHILS % (AUTO) 74.6 %; PLT - PLATELET COUNT 227 10^3/uL (130-450); RED BLOOD COUNT 4.15 10^6/uL (4.20-5.40); RED CELL DISTRIBUTION WIDTH 12.7 % (12.0-15.0); WHITE BLOOD COUNT 6.1 x10^3/uL (4.8-10.8)
[2021-04-14 13:02] LABS: ALBUMIN/GLOBULIN RATIO 1.4 (1.0-2.2); BILIRUBIN,TOTAL 1.2 mg/dL (0.2-1.0); MAGNESIUM 2.1 mg/dL (1.7-2.8); POTASSIUM 3.9 mmol/L (3.5-5.0); TOTAL PROTEIN 6.9 g/dL (6.7-8.2)
--- NOTE | 2021-04-14 13:49 | PHARMACY PROGRESS NOTE ---
- Best Possible Medication History Admit Date and Time: 04/14/21 1207 Processed by: Nursing Medication History completed: Yes Patient Interview: Completed (MED REC COMPLETED BY NURSING) As the person ultimately responsible for medication therapy, providers are able to order a medication from an existing home medication list in [facility] via the "Reconcile Routine" prior to Confirmation of that medication by application support consultant. Such practice is discouraged except when the physician, in their clinical judgment, deems that a medical need exists for a medication without regard to previous use.
[2021-04-14] MEDS: SODIUM CHLORIDE 0.9% 1,000 ML IV SCH ×2 (14:43→21:38)
--- NOTE | 2021-04-14 15:49 | CONSULTATION NOTE ---
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 The patient presented for same-day surgery and started by having wires inserted in the diagnostic imaging department under mammography guidance in order to undergo sentinel node nuclear imaging and then breast surgery by Dr. Pedro. Garrett oglesby in radiology during the mammogram and insertion of wires, the patient had a syncopal episode that was witnessed by Dr. Melvin of radiology and the telecom field technician. A CODE BLUE was called and this hospitalist responded. I saw the patient who was pale, supine in a radiology gurney but legs were dangling and got the history that the patient could tell she was about to pass out and then slumped backward onto the soft gurney. She admitted that she had "great out". She was nauseated at the time. She said that she has had fainting spells before. Her blood pressure at the scene was 90/50 with a heart rate of 70. The surgeon Dr Pedro, was notified by me and Dr Pedro has admitted the rimma ent to Observation status with consultation requested from the Hospitalist service for syncope evaluation and for preoperative evaluation. The patient is being seen now in a MedSur bed on telemetry. She is pink and warm and dry and no longer nauseated. She is able to give me a detailed history: The patient has been fainting since childhood. She always faints at the site of needles and sometimes at the site of blood. When she had a breast biopsy several months ago she fainted with that 1. The patient underwent bilateral knee surgeries in 2019 and for preop evaluation an EKG was done that was abnormal. This led to a stress test done in late 2018. It was abnormal (I do not have the details). She was seen for clearance by Dr. Jesse Brown of [facility]. Dr. Brown cleared her for surgery and advised that after having elective knee replacements (which were done successfully 6 months apart), she should eventually have an angiogram. The angiogram was done in May 2019, and showed normal coronary arteries. She has never needed to see that Wire Lather again (confirmed at Dr Brown's office). Patient denies ever having a work-up for frequent syncope like a Holter monitor or to tilt table test. She says she "always runs low blood pressure". She is not on any medicine that w ould drop her blood pressure. She "tries to avoid needles". She is active, walks several miles 3 times a week and gardens actively. With this she has no chest pain, dyspnea, denies PND, palpitations or leg edema. 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 which gives her fatigue and joint pains/swelling - Past Surgical History General: reports: Colonoscopy Ortho: reports: Knee replacement /AIR CONDITIONER INSTALLER HELPER: reports: section, Other HEENT: reports: Cataracts - Family & Social History Family History: Mother: (Brother of muscular dystrophy at age 70), Father: , Sister: Cancer (Breast CA and recent Dx with lupus-like disorder), Brother: , Other family: Alive and Well (Her 30-year-old son also has frequent syncope) Family History Comment/Other: The patient lives with her and has 2 adult children, a natural son who is 30 and an adopted adult daughter. Smoker, drinks rare alcohol, no illicit drug use Living arrangement: At home Living Situation: With spouse/s.o. - Substance History Use: Uses substance without health or social issues: NONE - POLST Patient has POLST: No POLST Status: Full Code Meds/Allgy - Home Medications Home Medications: Ambulatory Orders Medication Instructions Recorded Confirmed Calcium Citrate/Vitamin D3 1 tab PO BID 08/08/18 04/14/21 [Citracal-Vit D3 200 mg-250 Tab] Hydroxychloroquine [Plaquenil] 200 mg PO DAILY 08/08/18 04/14/21 Omeprazole 40 mg PO DAILY 03/05/21 04/14/21 Pravastatin [Pravachol] 40 mg PO DAILY 03/05/21 04/14/21 Levocetirizine Dihydrochloride 1 tab PO PRN PRN 04/14/21 04/14/21 [Xyzal] - Allergies Allergies/Adverse Reactions: Allergies Allergy/AdvReac Type Severity Reaction Status Date / Time Sulfa (Sulfonamide AdvReac Edema Verified 04/14/21 08:46 Antibiotics) Review of Systems - Cardiovascular Cariovascular: reports: Syncope - All Other Systems All Other Systems: reports: Reviewed and negative Exam - Vital Signs Vital Signs: Vital Signs x48h Temp Pulse Resp BP Pulse Ox 04/14/21 12:30 36.6 C 88 19 107/56 L 98 04/14/21 12:19 36.6 C 72 17 97/53 L 95 04/14/21 12:15 77 15 104/49 L 97 04/14/21 12:05 36.6 C 72 17 97/53 L 95 04/14/21 12:00 71 19 94/48 L 95 04/14/21 11:55 74 21 98/50 L 96 04/14/21 11:50 36.2 C L 72 19 99/52 L 94 04/14/21 11:45 67 18 93/52 L 92 04/14/21 11:42 64 16 96/49 L 93 04/14/21 11:40 36.1 C L 68 17 72/49 L 92 04/14/21 08:20 36.6 C 96 16 125/72 97 - Physical Exam General Appearance: positive: No acute distress, Alert Eyes Bilateral: positive: Normal inspection, PERRL, EOMI ENT: positive: ENT inspection nml, No signs of dehydration Neck: positive: Nml inspection, Thyroid nml, No JVD Respiratory: positive: No respiratory distress, Breath sounds nml Cardiovascular: positive: Regular rate & rhythm, No murmur Abdomen: positive: Non-tender, Nml bowel sounds, No distention Skin: positive: Warm, Dry Extremities: positive: Non-tender, Nml appearance (No joint swelling), No pedal edema Neurologic/Psychiatric: positive: Oriented x3 (Non-focal) Conclusion/Plan - Problem List (1) Syncope Conclusion/Plan: This patient describes lifelong syncope. Her symptoms are typically when she sees a needle or blood which is a vasovagal form of syncope. The management of this is to avoid volume depletion to prevent orthostasis and occasionally needing medications (such as Midodrine for low blood pressure) or permanent pacemaker insertion to prevent extreme bradycardia. She has no evidence of IHSS on her echo which would also cause syncopal events. Will plan to monitor on telemetry to watch for arrhythmias. Begin midodrine since she already has "low blood pressure naturally". Follow orthostatic vital signs. Obtain BMP. Avoid prerenal azotemia. Pain a complete Echo evaluation. Begin IV fluids perioperatively if she will be n.p.o. Outpatient Holter monitor and/or a Zio patch monitor for a week along with tilt table testing would be advised. She needs these done with a referral back to a Cardiology. (2) Abnormal EKG Conclusion/Plan: Patient claims that she had an abnormal EKG found on preop evaluation before knee surgery 3 years ago. That led to a stress test done in Jul 2018, which was abnormal. That led to an angiogram in May 2019, which showed normal coronary arteries. She therefore has an EKG that will always look abnormal. Because of her low blood pressure and syncopal events, she does not need to repeat the stress portion of a Lexiscan (vasodilator) stress test, since it may cause syncope. In addition, she has already proven that she can withstand general anesthesia by having 2 orthopedic surgeries since the time of the abnormal stress testing. If we do have her undergo a stress test and get abnormal results, we would consider that a false positive test again, as the 2018 stress test turned out. She has no anginal symptoms and has a low risk score on preop evaluation, therefore, the stress test has been canceled. (3) Pre-op evaluation Conclusion/Plan: Her revised cardiac risk index for preoperative risk assessment = 1 (Class II risk) which would theoretically give her a 6% 30-day risk of , [place] or cardiac arrest. Her 1-point, however, comes from having "history of abnormal exercise test". In fact she had a normal angiogram and the stress test was a false positive test. She therefore has 0 points (which is a class I risk) and gives her 3.9% 330-day risk of , [place] or cardiac arrest. I discussed the above with Dr. Pedro and she will likely proceed with her breast procedure tomorrow. Her risks were explained. The patient is agreeable with th e plan. (4) Breast cancer Conclusion/Plan: Given the low risk described above #3 and having successfully had general anesthesia, I recommend she proceed with her breast cancer work-up and management and surgery. Midodrine has been started and should be given before tomorrow's procedures that do require needles. (5) Connective tissue disorder Conclusion/Plan: She describes this as a "lupus-like syndrome". She is on Plaquenil and Xyzal for this which has controlled her joint symptoms significantly. Because of the se meds she is somewhat immunosuppressed. Continue management as will be recommended by Oncology - Lab Results Fish Bones: 04/14/21 12:44 04/14/21 12:44
[2021-04-14 16:11] LABS: B. PARAPERTUSSIS- RESP PCR PAN NOT DETECTED; B. PERTUSSIS- RESP PCR PANEL NOT DETECTED; C. PNEUMONIAE- RESP PCR PANEL NOT DETECTED; CORONAVIRUS 229E-RESP PCR NOT DETECTED; CORONAVIRUS HKU1-RESP PCR NOT DETECTED; CORONAVIRUS NL63-RESP PCR NOT DETECTED; CORONAVIRUS OC43-RESP PCR NOT DETECTED; HUMAN METAPNEUMOVIRUS NOT DETECTED; INFLUENZA A- RESP PCR PANEL NOT DETECTED; INFLUENZA B - RESP PCR PANEL NOT DETECTED; M. PNEUMONIAE- RESP PCR PANEL NOT DETECTED; PARAINFLUENZA VIRUS 1 NOT DETECTED; PARAINFLUENZA VIRUS 2 NOT DETECTED; PARAINFLUENZA VIRUS 3 NOT DETECTED; PARAINFLUENZA VIRUS 4 NOT DETECTED; RHINOVIRUS/ENTEROVIRUS NOT DETECTED; RSV- RESP PCR PANEL NOT DETECTED; SARS-CoV-2 -RESP PCR PANEL NOT DETECTED
[2021-04-14] MEDS: SODIUM CHLORIDE FLUSH 0.9% 10 ML SYRINGE IVP SCH (16:30)
[2021-04-14] MEDS: MIDODRINE 2.5 MG TABLET PO SCH (16:39)
[2021-04-14] MEDS ORDERED: ATORVASTATIN 40 MG TABLET PO SCH (21:00)
[2021-04-15] MEDS: SODIUM CHLORIDE FLUSH 0.9% 10 ML SYRINGE IVP SCH ×2 (00:51→08:40)
[2021-04-15 05:52] LABS: HCT - HEMATOCRIT 39.6 % (37.0-47.0); HGB - HEMOGLOBIN 12.6 g/dL (12.0-16.0); MEAN CORPUSCULAR HGB CONC 31.8 g/dL (32.0-36.0); MEAN CORPUSCULAR VOLUME 91.2 fL (81.0-99.0); MEAN PLATELET VOLUME 9.5 fL (7.9-10.8); RED BLOOD COUNT 4.34 10^6/uL (4.20-5.40); RED CELL DISTRIBUTION WIDTH 12.8 % (12.0-15.0); WHITE BLOOD COUNT 6.3 x10^3/uL (4.8-10.8)
[2021-04-15 06:01] LABS: CALCIUM 8.9 mg/dL (8.5-10.3); CREATININE 0.6 mg/dL (0.4-1.0); POTASSIUM 3.8 mmol/L (3.5-5.0)
[2021-04-15] MEDS ORDERED: PANTOPRAZOLE 40 MG TABLET PO SCH (07:00)
[2021-04-15] MEDS: SODIUM CHLORIDE 0.9% 1,000 ML IV SCH (08:26)
[2021-04-15] MEDS: MIDODRINE 2.5 MG TABLET PO SCH (08:26)
[2021-04-15] MEDS ORDERED: HYDROXYCHLOROQUINE 200 MG TABLET PO SCH (09:00)
--- NOTE | 2021-04-15 10:19 | ANESTHESIA ---
Pre-Anesthesia VS, & Labs - Diagnosis Left breast cancer - Procedure Left breast lumpectomy x2 with SN biopsy Vital Signs: Temp Pulse Resp BP Pulse Ox 36.7 C 80 16 114/54 L 99 04/15/21 08:43 04/15/21 08:43 04/15/21 08:43 04/15/21 08:43 04/15/21 08:43 Height: 5 ft 4 in Weight (kg): 82 kg Body Mass Index: 31.0 BMI Classification: Obese - NPO >8 hours - Is Patient ?: No - Lab Results Current Lab Results: Laboratory Tests 04/15/21 05:39: Troponin I High Sens 48.1 H* 04/15/21 05:39: TSH 0.85 04/15/21 05:39: Sodium 140, Potassium 3.8, Chloride 110, Carbon Dioxide 22, Anion Gap 8.0, BUN 18, Creatinine 0.6, Estimated GFR (MDRD) 99, Glucose 94, Calcium 8.9 04/15/21 05:39: WBC 6.3, RBC 4.34, Hgb 12.6, Hct 39.6, MCV 91.2, MCH 29.0, MCHC 31.8 L, RDW 12.8, Plt Count 236, MPV 9.5 04/14/21 14:26: Troponin I High Sens 51.9 H* 04/14/21 12:44: Troponin I High Sens 47.5 H* 04/14/21 12:44: Sodium 140, Potassium 3.9, Chloride 105, Carbon Dioxide 25, Anion Gap 10.0, BUN 21 H, Creatinine 1.0, Estimated GFR (MDRD) 55 L, Glucose 90, Calcium 9.0, Magnesium 2.1, Total Bilirubin 1.2 H, AST 19, ALT 15, Alkaline Ph osphatase 58, Total Protein 6.9, Albumin 4.0, Globulin 2.9, Albumin/Globulin Ratio 1.4 04/14/21 12:44: WBC 6.1, RBC 4.15 L, Hgb 12.3, Hct 38.3, MCV 92.3, MCH 29.6, MCHC 32.1, RDW 12.7, Plt Count 227, MPV 9.4, Neut # (Auto) 4.5, Lymph # (Auto) 0.9 L, [place] # (Auto) 0.5, Eos # (Auto) 0.1, Baso # (Auto) 0.0, Absolute Nucleated RBC 0.00, Nucleated RBC % 0.0 04/14/21 12:44: Lactic Acid 0.9 Fish Bones: 04/15/21 05:39 04/15/21 05:39 Home Medications and Allergies Home Medications: Ambulatory Orders Levocetirizine Dihydrochloride [Xyzal] 1 tab PO PRN PRN 04/14/21 Active Medications Atorvastatin Calcium (Atorvastatin 40 Mg Tablet) 80 mg PO QPM [facility] Last Admin: 04/14/21 21:38 Dose: 80 mg Documented by: Hydroxychloroquine Sulfate (Hydroxychloroquine 200 Mg Tablet) 200 mg PO DAILY [facility] Last Admin: 04/15/21 08:30 Dose: 200 mg Documented by: Sodium Chloride (Normal Saline 0.9%) 1,000 mls @ 100 mls/hr IV .Q10H [facility] Last Admin: 04/15/21 08:26 Dose: 100 mls/hr Documented by: Midodrine (Midodrine 2.5 Mg Tablet) 2.5 mg PO TIDWM [facility] Last Admin: 04/15/21 08:26 Dose: 2.5 mg Documented by: Pantoprazole Sodium (Pantoprazole 40 Mg Tablet) 40 mg PO QDAC [facility] Last Admin: 04/15/21 06:33 Dose: 40 mg Documented by: Sodium Chloride (Sodium Chloride Flush 0.9% 10 Ml Syringe) 10 ml IVP PRN PRN PRN Reason: NEEDED PER PROVIDER ORDERS Sodium Chloride (Sodium Chloride Flush 0.9% 10 Ml Syringe) 10 ml IVP 0100,0900,1700 [facility] Last Admin: 04/15/21 08:40 Dose: 10 ml Documented by: Calcium Citrate/Vitamin D3 [Citracal-Vit D3 200 mg-250 Tab] 1 tab PO BID 08/08/18 Hydroxychloroquine [Plaquenil] 200 mg PO DAILY 08/08/18 Omeprazole 40 mg PO DAILY 03/05/21 Pravastatin [Pravachol] 40 mg PO DAILY 03/05/21 Levocetirizine Dihydrochloride [Xyzal] 1 tab PO PRN PRN 04/14/21 Allergies/Adverse Reactions: Allergies Allergy/AdvReac Type Severity Reaction Status Date / Time Sulfa (Sulfonamide AdvReac Edema Verified 04/14/21 08:46 Antibiotics) Anes History & Medical History - Anesthetic History Anesthesia Complications: reports: No previous complications - Medical History Cardiovascular: reports: High cholesterol, Other (Recurrent syncope. 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 which gives her fatigue and joint pains/swelling - Surgical History General: reports: Colonoscopy Eyes Ears Nose Throat (EENT): reports: Cataracts Gynecologic: reports: section, Other Orthopedic: reports: Knee replacement Exam General: Alert, Oriented x3, Cooperative, No acute distress Dental: WNL Mouth Openin Fingerbreadth Neck Mobility: Normal Mallampati classification: II Thyromental Distance: 4-6 cm Respiratory: Lungs clear, Normal breath sounds, No respiratory distress, No accessory muscle use Cardiovascular: Regular rate, Normal S1, Normal S2, No murmurs Mental/Cognitive Status: Alert/Oriented X3, Normal for patient Plan Anesthesia Type: General Consent for Procedure(s) Verified and Reviewed: Yes Code Status: Attempt Resuscitation ASA classification: 2-Mild systemic disease Is this case an emergency?: No
[2021-04-15] MEDS ORDERED: BUPIVACAINE 0.5% PF 10 ML VIAL ONE ×2 (11:28)
[2021-04-15] MEDS ORDERED: LIDOCAINE 2%-EPI 1:100000 20 ML MDV ONE (11:28)
[2021-04-15] MEDS ORDERED: LACTATED RINGERS 1,000 ML IV ONE (12:08)
--- NOTE | 2021-04-15 12:14 | PROVIDER PROGRESS NOTE ---
Subjective - General Admit Date: 04/14/21 Procedure Date: 04/14/21 Post Op Days: 1 Procedure Performed: Left breast lumpectomy and sentinel node biopsy scheduled for later today - Review of Systems General: positive: No symptoms HEENT: positive: No symptoms Pulmonary: positive: No symptoms Cardiovascular: positive: No symptoms Gastrointestinal: positive: No symptoms Genitourinary: positive: No symptoms Musculoskeletal: positive: No symptoms Skin: positive: No symptoms All Other Systems: positive: Reviewed and negative Objective - Patient Data Reviewed Vital Signs: Yes Vital Signs: Vital Signs x48h Temp Pulse Resp BP Pulse Ox 04/15/21 08:43 36.7 C 80 16 114/54 L 99 04/15/21 05:28 36.7 C 83 18 123/63 94 Weight: Weight 04/13/21 04/14/21 04/15/21 23:59 23:59 23:59 Weight (kg) 82 kg 82 kg Intake & Output: Intake and Output Totals x24h 04/13/21 04/14/21 04/15/21 23:59 23:59 23:59 Intake Total 2594.208 1046.333 Balance 5774.907 1354.333 - Lab Results Lab Results: 04/15/21 05:39 04/15/21 05:39 Other Lab Results: Lab Results x24hrs 04/15/21 04/15/21 04/15/21 Range/Units 05:39 05:39 05:39 WBC (4.8-10.8) x10^3/uL RBC (4.20-5.40) 10^6/uL Hgb (12.0-16.0) g/dL Hct (37.0-47.0) % MCV (81.0-99.0) fL MCH (27.0-31.0) pg MCHC (32.0-36.0) g/dL RDW (12.0-15.0) % Plt Count (130-450) 10^3/uL MPV (7.9-10.8) fL Neut # (Auto) (1.5-6.6) 10^3/uL Lymph # (Auto) (1.5-3.5) 10^3/uL [place] # (Auto) (0.0-1.0) 10^3/uL Eos # (Auto) (0.0-0.7) 10^3/uL Baso # (Auto) (0.0-0.1) 10^3/uL Absolute Nucleated RBC x10^3/uL Nucleated RBC % /100WBC Sodium 140 (135-145) mmol/L Potassium 3.8 (3.5-5.0) mmol/L Chloride 110 (101-111) mmol/L Carbon Dioxide 22 (21-32) mmol/L Anion Gap 8.0 (6-13) BUN 18 (6-20) mg/dL Creatinine 0.6 (0.4-1.0) mg/dL Estimated GFR (MDRD) 99 (>89) Glucose 94 (70-100) mg/dL Lactic Acid (0.5-2.2) mmol/L Calcium 8.9 (8.5-10.3) mg/dL Magnesium (1.7-2.8) mg/dL Total Bilirubin (0.2-1.0) mg/dL AST (10-42) IU/L ALT (10-60) IU/L Alkaline Phosphatase (42-121) IU/L Troponin I High Sens 48.1 H* (2.3-14.8) ng/L Total Protein (6.7-8.2) g/dL Albumin (3.2-5.5) g/dL Globulin (2.1-4.2) g/dL Albumin/Globulin Ratio (1.0-2.2) TSH 0.85 (0.34-5.60) uIU/mL Nasal Adenovirus (PCR) Nasal B. parapertussis DNA (PCR) Nasal Coronavir 229E PCR Nasal Coronavir HKU1 PCR Nasal Coronavir NL63 PCR Nasal Coronavir OC43 PCR Nasal Enterovir/Rhinovir PCR Nasal Influenza B PCR Nasal Influenza A PCR Nasal Parainfluen 1 PCR Nasal Parainfluen 2 PCR Nasal Parainfluen 3 PCR Nasal Parainfluen 4 PCR Nasal RSV (PCR) Nasal B.pertussis DNA PCR Nasal C.pneumoniae (PCR) Nishant Human Metapneumo PCR Nasal M.pneumoniae (PCR) Nasal SARS-CoV-2 (PCR) 04/15/21 04/14/21 04/14/21 Range/Units 05:39 14:26 14:05 WBC 6.3 (4.8-10.8) x10^3/uL RBC 4.34 (4.20-5.40) 10^6/uL Hgb 12.6 (12.0-16.0) g/dL Hct 39.6 (37.0-47.0) % MCV 91.2 (81.0-99.0) fL MCH 29.0 (27.0-31.0) pg MCHC 31.8 L (32.0-36.0) g/dL RDW 12.8 (12.0-15.0) % Plt Count 236 (130-450) 10^3/uL MPV 9.5 (7.9-10.8) fL Neut # (Auto) (1.5-6.6) 10^3/uL Lymph # (Auto) (1.5-3.5) 10^3/uL [place] # (Auto) (0.0-1.0) 10^3/uL Eos # (Auto) (0.0-0.7) 10^3/uL Baso # (Auto) (0.0-0.1) 10^3/uL Absolute Nucleated RBC x10^3/uL Nucleated RBC % /100WBC Sodium (135-145) mmol/L Potassium (3.5-5.0) mmol/L Chloride (101-111) mmol/L Carbon Dioxide (21-32) mmol/L Anion Gap (6-13) BUN (6-20) mg/dL Creatinine (0.4-1.0) mg/dL Estimated GFR (MDRD) (>89) Glucose (70-100) mg/dL Lactic Acid (0.5-2.2) mmol/L Calcium (8.5-10.3) mg/dL Magnesium (1.7-2.8) mg/dL Total Bilirubin (0.2-1.0) mg/dL AST (10-42) IU/L ALT (10-60) IU/L Alkaline Phosphatase (42-121) IU/L Troponin I High Sens 51.9 H* (2.3-14.8) ng/L Total Protein (6.7-8.2) g/dL Albumin (3.2-5.5) g/dL Globulin (2.1-4.2) g/dL Albumin/Globulin Ratio (1.0-2.2) TSH (0.34-5.60) uIU/mL Nasal Adenovirus (PCR) NOT DETECTED Nasal B. parapertussis DNA (PCR) NOT DETECTED Nasal Coronavir 229E PCR NOT DETECTED Nasal Coronavir HKU1 PCR NOT DETECTED Nasal Coronavir NL63 PCR NOT DETECTED Nasal Coronavir OC43 PCR NOT DETECTED Nasal Enterovir/Rhinovir PCR NOT DETECTED Nasal Influenza B PCR NOT DETECTED Nasal Influenza A PCR NOT DETECTED Nasal Parainfluen 1 PCR NOT DETECTED Nasal Parainfluen 2 PCR NOT DETECTED Nasal Parainfluen 3 PCR NOT DETECTED Nasal Parainfluen 4 PCR NOT DETECTED Nasal RSV (PCR) NOT DETECTED Nasal B.pertussis DNA PCR NOT DETECTED Nasal C.pneumoniae (PCR) NOT DETECTED Nishant Human Metapneumo PCR NOT DETECTED Nasal M.pneumoniae (PCR) NOT DETECTED Nasal SARS-CoV-2 (PCR) NOT DETECTED 04/14/21 04/14/21 04/14/21 Range/Units 12:44 12:44 12:44 WBC 6.1 (4.8-10.8) x10^3/uL RBC 4.15 L (4.20-5.40) 10^6/uL Hgb 12.3 (12.0-16.0) g/dL Hct 38.3 (37.0-47.0) % MCV 92.3 (81.0-99.0) fL MCH 29.6 (27.0-31.0) pg MCHC 32.1 (32.0-36.0) g/dL RDW 12.7 (12.0-15.0) % Plt Count 227 (130-450) 10^3/uL MPV 9.4 (7.9-10.8) fL Neut # (Auto) 4.5 (1.5-6.6) 10^3/uL Lymph # (Auto) 0.9 L (1.5-3.5) 10^3/uL [place] # (Auto) 0.5 (0.0-1.0) 10^3/uL Eos # (Auto) 0.1 (0.0-0.7) 10^3/uL Baso # (Auto) 0.0 (0.0-0.1) 10^3/uL Absolute Nucleated RBC 0.00 x10^3/uL Nucleated RBC % 0.0 /100WBC Sodium 140 (135-145) mmol/L Potassium 3.9 (3.5-5.0) mmol/L Chloride 105 (101-111) mmol/L Carbon Dioxide 25 (21-32) mmol/L Anion Gap 10.0 (6-13) BUN 21 H (6-20) mg/dL Creatinine 1.0 (0.4-1.0) mg/dL Estimated GFR (MDRD) 55 L (>89) Glucose 90 (70-100) mg/dL Lactic Acid (0.5-2.2) mmol/L Calcium 9.0 (8.5-10.3) mg/dL Magnesium 2.1 (1.7-2.8) mg/dL Total Bilirubin 1.2 H (0.2-1.0) mg/dL AST 19 (10-42) IU/L ALT 15 (10-60) IU/L Alkaline Phosphatase 58 (42-121) IU/L Troponin I High Sens 47.5 H* (2.3-14.8) ng/L Total Protein 6.9 (6.7-8.2) g/dL Albumin 4.0 (3.2-5.5) g/dL Globulin 2.9 (2.1-4.2) g/dL Albumin/Globulin Ratio 1.4 (1.0-2.2) TSH (0.34-5.60) uIU/mL Nasal Adenovirus (PCR) Nasal B. parapertussis DNA (PCR) Nasal Coronavir 229E PCR Nasal Coronavir HKU1 PCR Nasal Coronavir NL63 PCR Nasal Coronavir OC43 PCR Nasal Enterovir/Rhinovir PCR Nasal Influenza B PCR Nasal Influenza A PCR Nasal Parainfluen 1 PCR Nasal Parainfluen 2 PCR Nasal Parainfluen 3 PCR Nasal Parainfluen 4 PCR Nasal RSV (PCR) Nasal B.pertussis DNA PCR Nasal C.pneumoniae (PCR) Nishant Human Metapneumo PCR Nasal M.pneumoniae (PCR) Nasal SARS-CoV-2 (PCR) 04/14/21 Range/Units 12:44 WBC (4.8-10.8) x10^3/uL RBC (4.20-5.40) 10^6/uL Hgb (12.0-16.0) g/dL Hct (37.0-47.0) % MCV (81.0-99.0) fL MCH (27.0-31.0) pg MCHC (32.0-36.0) g/dL RDW (12.0-15.0) % Plt Count (130-450) 10^3/uL MPV (7.9-10.8) fL Neut # (Auto) (1.5-6.6) 10^3/uL Lymph # (Auto) (1.5-3.5) 10^3/uL [place] # (Auto) (0.0-1.0) 10^3/uL Eos # (Auto) (0.0-0.7) 10^3/uL Baso # (Auto) (0.0-0.1) 10^3/uL Absolute Nucleated RBC x10^3/uL Nucleated RBC % /100WBC Sodium (135-145) mmol/L Potassium (3.5-5.0) mmol/L Chloride (101-111) mmol/L Carbon Dioxide (21-32) mmol/L Anion Gap (6-13) BUN (6-20) mg/dL Creatinine (0.4-1.0) mg/dL Estimated GFR (MDRD) (>89) Glucose (70-100) mg/dL Lactic Acid 0.9 (0.5-2.2) mmol/L Calcium (8.5-10.3) mg/dL Magnesium (1.7-2.8) mg/dL Total Bilirubin (0.2-1.0) mg/dL AST (10-42) IU/L ALT (10-60) IU/L Alkaline Phosphatase (42-121) IU/L Troponin I High Sens (2.3-14.8) ng/L Total Protein (6.7-8.2) g/dL Albumin (3.2-5.5) g/dL Globulin (2.1-4.2) g/dL Albumin/Globulin Ratio (1.0-2.2) TSH (0.34-5.60) uIU/mL Nasal Adenovirus (PCR) Nasal B. parapertussis DNA (PCR) Nasal Coronavir 229E PCR Nasal Coronavir HKU1 PCR Nasal Coronavir NL63 PCR Nasal Coronavir OC43 PCR Nasal Enterovir/Rhinovir PCR Nasal Influenza B PCR Nasal Influenza A PCR Nasal Parainfluen 1 PCR Nasal Parainfluen 2 PCR Nasal Parainfluen 3 PCR Nasal Parainfluen 4 PCR Nasal RSV (PCR) Nasal B.pertussis DNA PCR Nasal C.pneumoniae (PCR) Nishant Human Metapneumo PCR Nasal M.pneumoniae (PCR) Nasal SARS-CoV-2 (PCR) - Current Medications Current Medications: Current Medications Generic Name Dose Route Start Last Admin Trade Name Freq PRN Reason Stop Dose Admin Atorvastatin Calcium 80 mg 04/14/21 21:00 04/14/21 21:38 Atorvastatin 40 Mg Tablet PO 80 mg QPM [facility] Administration Hydroxychloroquine Sulfate 200 mg 04/15/21 09:00 04/15/21 08:30 Hydroxychloroquine 200 Mg Tablet PO 200 mg DAILY [facility] Administration Sodium Chloride 1,000 mls @ 100 mls/hr 04/14/21 13:00 04/15/21 10:22 Normal Saline 0.9% IV 0 mls/hr .Q10H [facility] Infusion Midodrine 2.5 mg 04/14/21 17:00 04/15/21 08:26 Midodrine 2.5 Mg Tablet PO 2.5 mg TIDWM [facility]HLIA Administration Pantoprazole Sodium 40 mg 04/15/21 07:00 04/15/21 06:33 Pantoprazole 40 Mg Tablet PO 40 mg QDAC [facility] Administration Sodium Chloride 10 ml 04/14/21 17:00 04/15/21 08:40 Sodium Chloride Flush 0.9% 10 Ml Syringe IVP 10 ml 0100,0900,1700 [facility] Administration - Physical Exam General Appearance: positive: No acute distress Eyes Bilateral: positive: Normal inspection Respiratory: positive: Chest non-tender, No respiratory distress, Breath sounds nml Cardiovascular: positive: Regular rate & rhythm Rectal: positive: Non-tender Skin: positive: Color nml Neurologic/Psychiatric: positive: Oriented x3 ABX Reporting Has patient been on IV antibiotics over the past 48 hours?: No Impression/Plan - Problem List Problem List: Left breast cancer. For left breast lumpectomy x2 and sentinel node biopsy topatsy ay. Cardiac evaluation has been completed per Dr. Laird and she is deemed a low risk candidate for this procedure.
--- NOTE | 2021-04-15 12:18 | Mammography Report ---
MAMMOGRAPHY GUIDED WIRE LOCALIZATION LEFT BREAST: 04/14/2021 CLINICAL: Post wire placement. Correlation is made to exams dated: 03/05/2021 mammogram, 03/05/2021 MRI biopsy - [facility] , 02/14/2021 ultrasound biopsy, 02/14/2021 mammogram, 02/07/2021 ultrasound - [facility], and 01/25/2021 breast MRI - [facility]. A wire localization using mammography guidance was performed for the marker clip located in the left breast at 4 o'clock. The skin was prepped in the usual manner. Local anesthetic was administered to the access site. A J-hook wire was inserted into the targeted area under mammography guidance. The patient received additional topical anesthetic during the procedure. The paitient felt dizzy and lightheaded after initial needle placement in CC view. Patient subsequen tly passed out for several secounds. She recovered on her own, with incident appearing to vasovagal in nature. Additional view was completed and patient returned to same day surgery. IMPRESSION: WIRE LOCALIZATION Wire localization for the marker clip in the left breast at [address] Pedro was notified of the above on 04/14/21. This exam was interpreted at Station ID: [id number]. Emily Puente M.D. [facility]/:04/14/2021 16:26:19 BI-RADS CATEGORY: () - Unspecified - other recall n/a LATERALITY: (B)
--- NOTE | 2021-04-15 12:19 | Ultrasound Report ---
ULTRASOUND GUIDED WIRE LOCALIZATION LEFT BREAST: 04/14/2021 CLINICAL: Left Breast wire placement. Correlation is made to exams dated: 03/05/2021 mammogram, 03/05/2021 MRI biopsy - [facility] , 02/14/2021 ultrasound biopsy, 02/14/2021 mammogram, 02/07/2021 ultrasound - [facility], and 01/25/2021 breast MRI - [facility]. A wire localization using ultrasound guidance was performed for the irregular shaped mass located in the left breast at 12 o'clock. This was described on the previous mammography and ultrasound reports . The skin was prepped in the usual manner. Local anesthetic was administered to the access site. A skin uday was made in the breast. The localization was approached from the lateral aspect. A J-ho ok wire was inserted into the targeted area under ultrasound guidance. The patient received addition al topical anesthetic during the procedure. IMPRESSION: WIRE LOCALIZATION Wire localization for the mass in the left breast at 12 o'clock was successful. This exam was interpreted at Station ID: [id number]. Emily Puente M.D. [facility]/:04/14/2021 16:22:16 BI-RADS CATEGORY: () - Unspecified - other recall n/a LATERALITY: (B)
[2021-04-15] MEDS ORDERED: PROPOFOL 200 MG/20 ML VIAL IVP ONE (12:26)
[2021-04-15] MEDS ORDERED: LIDOCAINE-MPF 2% 5 ML VIAL ONE (12:26)
[2021-04-15] MEDS ORDERED: ONDANSETRON 4 MG/2 ML VIAL ONE (12:27)
[2021-04-15] MEDS ORDERED: fentaNYL 100 MCG/2 ML VIAL ONE (12:27)
[2021-04-15] MEDS ORDERED: ePHEDrine 50 MG/ML VIAL IVP ONE (12:44)
[2021-04-15] MEDS ORDERED: ceFAZolin 1 GM VIAL ONE ×2 (12:53)
[2021-04-15] MEDS ORDERED: LIDOCAINE 2%-EPI 1:100000 20 ML MDV SUBQ ONE (13:07)
[2021-04-15] MEDS ORDERED: BUPIVACAINE 0.5% PF 30 ML VIAL INFIL ONE (13:07)
[2021-04-15] MEDS ORDERED: HYDROmorphone 0.5 MG/0.5 ML SYRINGE IVP PRN (13:38)
[2021-04-15] MEDS ORDERED: ATROPINE ABBOJECT 1 MG/10 ML SYRINGE IVP PRN (13:38)
[2021-04-15] MEDS ORDERED: NALOXONE 0.4 MG/ML VIAL IVP PRN (13:38)
[2021-04-15] MEDS ORDERED: MORPHINE 2 MG/ML CARPUJECT IVP PRN (13:38)
[2021-04-15] MEDS ORDERED: fentaNYL 100 MCG/2 ML VIAL IVP PRN (13:38)
--- NOTE | 2021-04-15 13:53 | OPERATIVE REPORT ---
Operative Report - General Admit Date: 04/14/21 Procedure Date: 04/15/21 Planned Procedure: Left breast lumpectomy x2 and left axillary sentinel node dissection Pre-Op Diagnosis: Biopsy-proven left breast malignancy Procedure Performed: Left breast lumpectomy x2 and left axillary sentinel node dissection Post Op Diagnosis: Same - Procedure Note Primary Surgeon: Willis Anesthesia Provider: MARICARMEN Curran Anesthesia Technique: General LMA Pathology: 1. Tatum node #1 2. Tatum node #2 3. 4 o'clock lesion 4. 10 o'clock lesion Estimated Blood Loss (mL): 20 Findings: 2 sentinel nodes with 10-second counts recorded. Background in the axilla of 20-35. Background in the room of 0 Complications: None apparent - Other Other Information/Narrative: After obtaining informed consent, the patient was brought to the operating room and placed in the supine position on the operating table. Following successful induction of general endotracheal anesthesia, appropriate padding of all bony prominences, and placement of appropriate monitors, the left breast was prepped and draped in the standard surgical fashion. A timeout was held per scope protocol. All elements of the surgical safety checklist were followed before, during, and after the procedure. We began the procedure with a sentinel node dissection. The site of the brightest node had been marked in radiology with 2 skin marker axis. The neoprobe was used to identify the site of greatest uptake at level 2 in the patient's axilla. An incision was created over this area of uptake and carried through the skin and subcutaneous tissue to enter the axillary node packet. The first sentinel node was easily identified. It was normal in size and appearance. It was carefully dissected free from surrounding stop structures sharply, all lymphatics and vasculature were addressed with clips prior to division. The node was liberated into the field. 10-second counts are recorded. Survey of the axilla revealed continued high uptake. A second sentinel node was identified just posterior to the first. Again it was addressed in the same manner. It was gently retracted and sharply freed from th e surrounding structures. All lymphatics and vasculature were dressed with hemoclips and the node was liberated. It was delivered into the field and a 10- second count was obtained. Additional survey of the axilla revealed no other areas of uptake meeting dissection criteria. The axilla was examined for hemostasis. It was irrigated with warm water and aspirated free of fluid and particulate matter. Background in the axilla was checked and found to be 20-35. Background in the room was 0. The axillary incision was then closed in 2 layers with Vicryl and Monocryl sutures. We turned our attention to the 4:00 left breast mass. The area over the mass and in the periareolar region was infiltrated with a mixture of local anesthetics to cry to field block. A periareolar incision was then created in the Palpable mass carefully dissected From the underlying tissue. The ellipse of skin overlying this lesion was taken with the specimen.The specimen was marked for orientation and submitted for radiographic imaging. Waited on that result, we addressed the 10:00 lesion this area of the breast was accessed existing opening. The wire was pulled through the skin and into the opening in the tissue. The mass and wire were carefully dissected free from surrounding structures and delivered into the field. Again this lesion was marked for orientation and submitted to radiology for imaging.Wound was checked for hemostasis. It was irrigated again with warm water. The radiologist reported both lesions contained well within the specimen. The wound was then closed in 2 layers with Vicryl and Monocryl sutures. All sponge, needle, and instrument counts were correct at the conclusion of the case. The patient was let awakened anesthesia without difficulty and taken to the postanesthesia care unit in good condition.
[2021-04-15] MEDS ORDERED: IBUPROFEN 600 MG TABLET PO PRN (13:58)
[2021-04-15] MEDS ORDERED: ONDANSETRON 4 MG/2 ML VIAL IVP PRN (13:58)
[2021-04-15] MEDS ORDERED: ACETAMINOPHEN 325 MG TABLET PO PRN (13:58)
[2021-04-15] MEDS ORDERED: oxyCODONE 5 MG TABLET PO PRN (13:58)
[2021-04-15] MEDS ORDERED: LACTATED RINGERS 300 ML IV ONE (13:59)
[2021-04-15] MEDS ORDERED: LACTATED RINGERS 1,000 ML IV SCH (14:00)
[2021-04-15] MEDS ORDERED: PROMETHAZINE INJ 6.25 MG in SODIUM CHLORIDE 0.9% 50 ML IV PRN (14:04)
[2021-04-15] MEDS ORDERED: ACETAMINOPHEN 1,000 MG/100 ML 100 ML IV ONE (14:08)
[2021-04-15] MEDS ORDERED: PROMETHAZINE 25 MG/1 ML VIAL ONE (14:20)
[2021-04-15 15:06] VITALS: BP 107/52
--- NOTE | 2021-04-15 20:28 | ANESTHESIA POST OP EVALUATION ---
Anesthesia Post Eval - Post Anesthesia Eval Vitals: Last Vital Signs Temp 36.6 C 04/15/21 15:06 Pulse 83 04/15/21 15:06 Resp 16 04/15/21 15:06 BP 107/52 L 04/15/21 15:06 Pulse Ox 100 04/15/21 15:06 CV Function Including HR & BP: Stable Pain Control: Satisfactory Nausea & Vomiting: Negative Mental Status: Baseline Respiratory Status: Airway Patent Hydration Status: Satisfactory Anesthesia Complications: None
--- NOTE | 2021-04-16 09:41 | Nuclear Medicine Report ---
PROCEDURE: Lymph Node Scintigraphy INDICATIONS: LEFT BREAST CA RADIOPHARMACEUTICAL: 0.5-1.0 mCi Millipore filtered Tc-99m sulfur colloid. TECHNIQUE: The area around the nipple was prepped and draped in a sterile fashion. Tc-99m sulfur colloid was in jected intra-dermally in the outer edge of the areola in the left breast. Images were obtained subse quently. A body contour outline was obtained. FINDINGS: There are multiple lymph nodes in the ipsilateral axilla. The lymph node closest to the injection sit e in the axilla is marked on the skin and the images for the referring physician. IMPRESSION: [place] lymph node mapping for sentinel lymph node localization. Reviewed by: Fadia Cook MD on 04/16/2021 9:40 AM PDT Approved by: Fadia Cook MD on 04/16/2021 9:40 AM PDT Station ID: [id number]
--- NOTE | 2021-04-16 09:50 | Nuclear Medicine Report ---
PROCEDURE: Rest myocardial perfusion SPECT with gated imaging and ejection fraction INDICATIONS: SYNCOPE RADIOPHARMACEUTICAL: 8.1 mCi Tc-99m sestamibi IV at peak exercise. TECHNIQUE: Radiopharmaceutical was injected at rest. SPECT images were obtained, with perfusion marisa ges in short axis, horizontal long axis, and vertical long axis views. Gated images were reviewed us ing AccuVeinQUANT software. COMPARISON: None available. FINDINGS: Raw data: There is good labeling of myocardium by radiotracer. No significant motion artifacts. Naomie ng-to-heart ratio is 0.39 (normal is less than 0.38 for tetrafosmin tracer). Left ventricular function: Gated images demonstrate normal left ventricle wall thickening. No segme ntal wall motion abnormalities. Left ventricle end diastolic volume is normal. Left ventricle stres s ejection fraction is greater than 70%; normal values are above 45%. Myocardial perfusion: There is normal distribution of activity in the left and right ventricular elis cardium, without focal perfusion defects. IMPRESSION: 1. Normal resting myocardial perfusion images. No perfusion defect to suggest myocardial infarction. 2. Normal left ventricular volume and systolic function. PQRS ATTESTATIONS: Measure 322 - Is this imaging test primarily performed on a low-risk surgery patient for preoperative evaluation within 30 days preceding their low-risk non-cardiac surgery? Low-risk surgery is defined as cardiac or myocardial infarction less than 1%, including (but not limited to) endoscopic pr ocedures, superficial procedures, cataract surgery, and excisional breast surgery: Answer: No Measure 323 - Is this imaging test performed primarily for the monitoring of an asymptomatic patient who had percutaneous coronary intervention on the visit date or within 2 years of the visit date? An swer: No Measure 324 - Is this imaging test performed primarily for the initial detection and risk assessment on an asymptomatic, low coronary heart disease patient? Low CHD risk definition = clinicians should consider the maximum number of available patient factors used to estimate risk based on [place] (A TP III criteria), typically age, gender, diabetes, smoking status, and use of blood pressure medicati on, and integrate age appropriate estimates for missing elements, such as LDL or standard blood press ure. Answer: No Reviewed by: Fadia Cook MD on 04/16/2021 9:49 AM PDT Approved by: Fadia Cook MD on 04/16/2021 9:49 AM PDT Station ID: [id number]
--- NOTE | 2021-04-16 12:09 | Mammography Report ---
MULTIPLE SPECIMENS LEFT BREAST: 04/15/2021 CLINICAL: Left breast specimen x2. Correlation is made to exams dated: 04/14/2021 localization, 04/14/2021 localization - [facility], 03/05/2021 mammogram, 03/05/2021 MRI biopsy - [facility], 02/14/2021 ultrasound biopsy, and 02/14/2021 mammogram - [facility]. A lumpectomy specimen was imaged for the mass located in the left breast at 10 o'clock posterior dept h. The specimen contains the localization wire and the suspicious mass. The margins appear clear. A lumpectomy specimen was imaged for the mass located in the left breast at 4 o'clock posterior depth . The specimen contains two biopsy clips. The margins appear clear. IMPRESSION: SPECIMEN The imaged specimens appear to contain the lesions and localization devices. Please see pathology rep ort for more precise description of margins. This exam was interpreted at Station ID: [id number]. Michael Rob M.D. jr/:04/16/2021 08:23:18 BI-RADS CATEGORY: () - Unspecified - other recall n/a LATERALITY: (B)
== END 2021-04-15 16:15 | disposition home or self-care (01) ==
LOC: DI 08:03 → MS3 12:07 → ICU 15:48 → MS3 15:51
PROVIDERS: ADMIT Surgery; ATTEND Surgery
PROC: 07B60ZX Excision of Left Axillary Lymphatic, Open Approach, Diagnostic (ICD-10-PCS; 2021-04-15)
PROC: 0HBU0ZZ Excision of Left Breast, Open Approach (ICD-10-PCS; 2021-04-15)
PROC: 0HBU0ZZ Excision of Left Breast, Open Approach (ICD-10-PCS; principal; 2021-04-15 12:15)
DX: C50.212 Malignant neoplasm of upper-inner quadrant of left female breast (principal); Z17.0 Estrogen receptor positive status [ER+]; D05.82 Other specified type of carcinoma in situ of left breast; R55 Syncope and collapse; R94.31 Abnormal electrocardiogram [ECG] [EKG]; E78.00 Pure hypercholesterolemia, unspecified; K21.9 Gastro-esophageal reflux disease without esophagitis; M06.9 Rheumatoid arthritis, unspecified; M35.9 Systemic involvement of connective tissue, unspecified; M19.90 Unspecified osteoarthritis, unspecified site; G89.29 Other chronic pain; M54.9 Dorsalgia, unspecified; E66.9 Obesity, unspecified; Z68.31 Body mass index [BMI] 31.0-31.9, adult; Z20.822 Contact with and (suspected) exposure to COVID-19; Z96.659 Presence of unspecified artificial knee joint; Z79.899 Other long term (current) drug therapy
CPT/HCPCS: 19281; 19285; 19301; 36415; 38525; 76098; 78195; 78453; 80048; 80053; 83605; 83735; 84443; 84484; 85025; 85027; 87631; 88307; 88341; 88342; 88360; 93005; 93017; 93306; A9270; A9500; A9541; G0378; J0131; J7040; J7120; 0202U

== ENCOUNTER 2021-05-19 07:46 | Day surgery (SDC) | payer MEDICARE, OTHER ==
[2021-05-19] MEDS ORDERED: LACTATED RINGERS 1,000 ML IV ONE (07:51)
[2021-05-19] MEDS ORDERED: LIDOCAINE 2%-EPI 1:100000 20 ML MDV ONE (08:29)
[2021-05-19] MEDS ORDERED: BUPIVACAINE 0.5% PF 10 ML VIAL ONE ×2 (08:30)
[2021-05-19] MEDS ORDERED: ONDANSETRON 4 MG/2 ML VIAL ONE ×2 (08:35→09:31)
[2021-05-19] MEDS ORDERED: ONDANSETRON 4 MG/2 ML VIAL IVP ONE (08:45)
[2021-05-19] MEDS ORDERED: HYDROmorphone 0.5 MG/0.5 ML SYRINGE IVP PRN (08:46)
[2021-05-19] MEDS ORDERED: NALOXONE 0.4 MG/ML VIAL IVP PRN (08:46)
[2021-05-19] MEDS ORDERED: fentaNYL 100 MCG/2 ML VIAL IVP PRN (08:46)
[2021-05-19] MEDS ORDERED: MORPHINE 2 MG/ML CARPUJECT IVP PRN (08:46)
[2021-05-19] MEDS ORDERED: ATROPINE ABBOJECT 1 MG/10 ML SYRINGE IVP PRN (08:46)
--- NOTE | 2021-05-19 08:49 | ANESTHESIA ---
Pre-Anesthesia VS, & Labs - Diagnosis left breast cancer - Procedure re-excision of posterior margin after left breast lumpectomy Vital Signs: Temp Pulse Resp BP Pulse Ox 36.3 C L 82 16 123/57 L 100 05/19/21 07:52 05/19/21 07:52 05/19/21 07:52 05/19/21 07:52 05/19/21 07:52 Height: 5 ft 4 in Weight (kg): 83.1 kg Body Mass Index: 31.4 BMI Classification: Obese - NPO Last Fluid Intake: 0545-apple juice - Is Patient ?: No Home Medications and Allergies Active Medications Atropine Sulfate (Atropine Abboject 1 Mg/10 Ml Syringe) 0.5 mg IVP Q5M PRN PRN Reason: Bradycardia Stop: 05/20/21 08:46 Fentanyl (Fentanyl 100 Mcg/2 Ml Vial) 25 - 50 mcg IVP Q5M PRN PRN Reason: BREAKTHROUGH PAIN (2nd Choice) Stop: 05/20/21 08:46 Hydromorphone HCl (Hydromorphone 0.5 Mg/0.5 Ml Syringe) 0.2 - 0.6 mg IVP Q5M PRN PRN Reason: PAIN (First Choice) Stop: 05/20/21 08:46 Lactated Ringer's (Lr) 1,000 mls @ 100 mls/hr IV .Q10H DAHLIA Stop: 05/19/21 18:59 Morphine Sulfate (Morphine 2 Mg/Ml Carpuject) 2 - 4 mg IVP Q5M PRN PRN Reason: PAIN (3rd Choice) Stop: 05/20/21 08:46 Naloxone HCl (Naloxone 0.4 Mg/Ml Vial) 0.1 mg IVP Q2M PRN PRN Reason: RESP RATE <8 Stop: 05/20/21 08:46 Ondansetron HCl (Ondansetron 4 Mg/2 Ml Vial) 4 mg IVP ONCE ONE Stop: 05/19/21 08:46 Calcium Citrate/Vitamin D3 [Citracal-Vit D3 200 mg-250 Tab] 1 tab PO BID 08/08/18 Hydroxychloroquine [Plaquenil] 200 mg PO DAILY 08/08/18 Omeprazole 40 mg PO DAILY 03/05/21 Pravastatin [Pravachol] 40 mg PO DAILY 08/04/21 Allergies/Adverse Reactions: Allergies Allergy/AdvReac Type Severity Reaction Status Date / Time Sulfa (Sulfonamide AdvReac Edema Verified 04/14/21 08:46 Antibiotics) Anes History & Medical History - Anesthetic History Anesthesia Complications: reports: No previous complications - Medical History Cardiovascular: reports: High cholesterol Pulmonary: reports: None Gastrointestinal: reports: GERD Urinary: reports: None Neuro: reports: None Musculoskeletal: reports: Osteoarthritis, Rheumatoid arthritis, Chronic back pain Endocrine/Autoimmune: reports: Other (Lupus like syndrome, followed by Rheumatology) Blood Disorders: reports: None Skin: reports: None Smoking Status: Never smoker Psychosocial: reports: No issues indicated History of Cancer?: Yes (breast cancer) - Surgical History General: reports: Colonoscopy Eyes Ears Nose Throat (EENT): reports: Cataracts Gynecologic: reports: section, Other Orthopedic: reports: Knee replacement Exam General: Alert, Oriented x3, Cooperative Dental: WNL Mouth Openin Fingerbreadth Neck Mobility: Normal Mallampati classification: II Thyromental Distance: 4-6 cm Respiratory: Lungs clear, Normal breath sounds, No respiratory distress, No accessory muscle use Cardiovascular: Regular rate, Normal S1, Normal S2, No murmurs Mental/Cognitive Status: Alert/Oriented X3, Normal for patient Plan Anesthesia Type: General Consent for Procedure(s) Verified and Reviewed: Yes Code Status: Attempt Resuscitation ASA classification: 2-Mild systemic disease Is this case an emergency?: No
[2021-05-19] MEDS ORDERED: LACTATED RINGERS 1,000 ML IV SCH (09:00)
[2021-05-19] MEDS ORDERED: PROPOFOL 200 MG/20 ML VIAL IVP ONE ×2 (09:31→10:26)
[2021-05-19] MEDS ORDERED: LIDOCAINE-MPF 2% 5 ML VIAL ONE (09:31)
[2021-05-19] MEDS ORDERED: MIDAZOLAM 2 MG/2 ML VIAL ONE (09:32)
[2021-05-19] MEDS ORDERED: fentaNYL 100 MCG/2 ML VIAL ONE (09:32)
[2021-05-19] MEDS ORDERED: ePHEDrine 50 MG/ML VIAL IVP ONE (10:01)
[2021-05-19] MEDS ORDERED: BUPIVACAINE 0.5% PF 30 ML VIAL SUBQ ONE (10:06)
[2021-05-19] MEDS ORDERED: LIDOCAINE 1%-EPI 1:100000 30 ML MDV SUBQ ONE (10:06)
--- NOTE | 2021-05-19 10:29 | OPERATIVE REPORT ---
Operative Report - General Procedure Date: 05/19/21 Planned Procedure: Reexcision of posterior margin Pre-Op Diagnosis: Positive posterior margin after double lumpectomy for invasive cancer Procedure Performed: Reexcision of posterior margin at the 10:00 lesion Post Op Diagnosis: Positive posterior margin after double lumpectomy for invasive cancer - Procedure Note Primary Surgeon: Willis Anesthesia Provider: MARICARMEN Rios Anesthesia Technique: General LMA, Local Pathology: Specimen is posterior margin marked for orientation Estimated Blood Loss (mL): 10 Indications: Focally positive posterior margin after lumpectomy Findings: Well-defined seroma cavity at the 10 o'clock position. Nearly obliterated cavity at the 4 o'clock position Complications: None apparent - Other Other Information/Narrative: After obtaining informed consent, the patient is brought to the operating room and placed in the supine position on the operating table. Following successful induction of general endotracheal anesthesia, appropriate padding of all bony prominences, and placement appropriate monitors, the left breast and chest were prepped and draped in standard surgical fashion. A timeout was held per scope protocol. All elements of the surgical safety checklist were followed before, during, and after the procedure. We began by infiltrating a mixture of local anesthetics in the region of the existing scar in the lateral aspect of the left breast the existing scar was then repeated and carried through the skin and subcutaneous tissue. We dissected superiorly into the existing seroma cavity of the 10:00 lesion. This was well-defined. The entire posterior margin was then reexcised by grasping it with a Pastor clamp, excising the edge sharply, and then completing the posterior incision with curved Sarkar scissors. The wound was checked for hemostasis. The specimen was marked for orientation and passed from the table. The wound was irrigated with warm water and aspirated free of all fluid and particulate matter. The wound was then closed in layers with Vicryl Monocryl suture and Dermabond was applied to the skin. All sponge, needle, and instrument counts were correct at the conclusion of the case. The patient was let awake from anesthesia without difficulty and taken to the postanesthesia care unit in good condition.
[2021-05-19] MEDS ORDERED: IBUPROFEN 600 MG TABLET PO PRN (10:32)
[2021-05-19] MEDS ORDERED: ACETAMINOPHEN 325 MG TABLET PO PRN (10:32)
[2021-05-19] MEDS ORDERED: ONDANSETRON 4 MG/2 ML VIAL IVP PRN (10:32)
[2021-05-19] MEDS ORDERED: oxyCODONE 5 MG TABLET PO PRN (10:32)
[2021-05-19] MEDS ORDERED: LACTATED RINGERS 100 ML IV ONE (10:48)
[2021-05-19 11:42] VITALS: BP 110/60
--- NOTE | 2021-05-19 17:05 | ANESTHESIA POST OP EVALUATION ---
Anesthesia Post Eval - Post Anesthesia Eval Vitals: Last Vital Signs Temp 36.7 C 05/19/21 11:27 Pulse 88 05/19/21 11:27 Resp 14 05/19/21 11:27 BP 110/60 05/19/21 11:27 Pulse Ox 98 05/19/21 11:27 CV Function Including HR & BP: Stable Pain Control: Satisfactory Nausea & Vomiting: Negative Mental Status: Baseline Respiratory Status: Airway Patent Hydration Status: Satisfactory Anesthesia Complications: None
== END 2021-05-19 07:47 | disposition home or self-care (01) ==
LOC: SDS 07:46
PROVIDERS: ATTEND Surgery
PROC: 0HBU0ZZ Excision of Left Breast, Open Approach (ICD-10-PCS; principal; 2021-05-19 08:45)
DX: C50.212 Malignant neoplasm of upper-inner quadrant of left female breast (principal); E66.9 Obesity, unspecified; Z68.31 Body mass index [BMI] 31.0-31.9, adult
CPT/HCPCS: 19301; J7120

== ENCOUNTER 2023-01-25 10:56 | Outpatient (CLI) | payer MEDICARE, OTHER ==
--- NOTE | 2023-01-26 09:33 | Mammography Report ---
BILATERAL DIGITAL DIAGNOSTIC MAMMOGRAM 3D/2D: 01/25/2023 CLINICAL: Short term follow up of the left breast, due for bilateral imaging. Comparison is made to exams dated: 01/07/2022 mammogram - [facility], localization, 04/14/2021 localization - [facility], 03/05/2021 mammogram - [facility], 02/14/2021 mammogram, and 12/10/2020 mammogram - [facility]. Both breasts are heterogeneously dense, which may obscure small masses (category c / 51-75% glandular tissue). There are benign post operative findings in the left breast. No significant masses, calcifications, or other findings are seen in either breast. There has been no significant interval change. IMPRESSION: BENIGN There is no mammographic evidence of malignancy. A 1 year screening mammogram is recommended. Survei llance MRI also recommended, due in 6 months. Comparison to 2021 outside imaging on this study is difficult due to differences in technique, in par ticular lack of tomography on outside images. This exam was interpreted at Station ID: [id number]. NOTE: For mammograms, a report in lay terms will be sent to the patient. Approximately 15% of breast malignancies will not be visualized mammographically. In the management of a palpable breast mass, a negative mammogram must not discourage biopsy of a clinically suspicious lesion. Electronically Signed By: Cale Saldana M.D. lc/:01/25/2023 11:49:08 letter sent: No_Letter ACR BI-RADS Category 2: Benign Finding(s) 3342F PARENCHYMAL PATTERN: (D) - The breast(s) demonstrate(s) heterogeneously dense fibroglandular almas rodriguez. BI-RADS CATEGORY: (2) - 2 Mammogram [id number] 1 year screening LATERALITY: (B)
== END 2023-01-25 10:57 | disposition home or self-care (01) ==
LOC: DI 10:56
PROVIDERS: ATTEND Internal Medicine Hematology & Oncology
DX: C50.912 Malignant neoplasm of unspecified site of left female breast (principal)

== ENCOUNTER 2023-03-05 09:17 | Outpatient (CLI) | payer MEDICARE, OTHER ==
[2023-03-05 14:57] LABS: BASOPHILS % (AUTO) 0.8 %; EOSINOPHILS # (AUTO) 0.2 10^3/uL (0.0-0.7); EOSINOPHILS % (AUTO) 4.6 %; HCT - HEMATOCRIT 38.3 % (37.0-47.0); HGB - HEMOGLOBIN 12.3 g/dL (12.0-16.0); LYMPHOCYTES # (AUTO) 1.4 10^3/uL (1.5-3.5); LYMPHOCYTES % (AUTO) 35.5 %; MEAN CORPUSCULAR HEMOGLOBIN 30.3 pg (27.0-31.0); MEAN CORPUSCULAR HGB CONC 32.1 g/dL (32.0-36.0); MEAN CORPUSCULAR VOLUME 94.3 fL (81.0-99.0); MEAN PLATELET VOLUME 10.5 fL (7.9-10.8); MONOCYTES # (AUTO) 0.3 10^3/uL (0.0-1.0); MONOCYTES % (AUTO) 8.5 %; NEUTROPHILS % (AUTO) 50.3 %; PLT - PLATELET COUNT 224 10^3/uL (130-450); RED BLOOD COUNT 4.06 10^6/uL (4.20-5.40); RED CELL DISTRIBUTION WIDTH 13.7 % (12.0-15.0); WHITE BLOOD COUNT 3.9 x10^3/uL (4.8-10.8)
[2023-03-05 15:11] LABS: ALBUMIN 3.9 g/dL (3.2-5.5); ALBUMIN/GLOBULIN RATIO 1.3 (1.0-2.2); ALKALINE PHOSPHATASE 63 IU/L (42-121); ALT ALANINE AMINOTRANSFERASE 11 IU/L (10-60); AST ASPARTATE AMINOTRANSFERASE 17 IU/L (10-42); BILIRUBIN,TOTAL 0.6 mg/dL (0.2-1.0); BUN - BLOOD UREA NITROGEN 16 mg/dL (6-20); CALCIUM 9.1 mg/dL (8.5-10.3); CARBON DIOXIDE - CO2 30 mmol/L (21-32); CHLORIDE 107 mmol/L (101-111); CHOL/HDL RATIO 2.3 (<4.4); CHOLESTEROL 157 mg/dL; CREATININE 0.8 mg/dL (0.6-1.3); GFR - MDRD 71 (>89); GLUCOSE 93 mg/dL (74-104); HDL CHOLESTEROL 67 mg/dL; LDL CHOLESTEROL,CALCULATED 78 mg/dL; LDL/HDL RATIO 1.2 (<4.4); POTASSIUM 3.8 mmol/L (3.5-4.5); SODIUM 140 mmol/L (135-145); TOTAL PROTEIN 6.9 g/dL (6.4-8.9); TRIGLYCERIDES 61 mg/dL (48-352); VLDL CHOLESTEROL 12 mg/dL
== END 2023-03-05 09:18 | disposition home or self-care (01) ==
LOC: LAB.S 09:17
PROVIDERS: ATTEND Family Medicine
DX: Z51.81 Encounter for therapeutic drug level monitoring (principal); E78.5 Hyperlipidemia, unspecified; Z79.899 Other long term (current) drug therapy
CPT/HCPCS: 36415; 80053; 80061; 83721; 84443; 85025

== ENCOUNTER 2024-02-10 13:29 | Outpatient (CLI) | payer MEDICARE, OTHER ==
--- NOTE | 2024-02-11 09:05 | Mammography Report ---
BILATERAL DIGITAL DIAGNOSTIC MAMMOGRAM 3D/2D: 02/10/2024 CLINICAL: Routine screening. Personal history of left breast cancer. Comparison is made to exams dated: 01/25/2023 mammogram - [facility], 07/13/2022 east MRI, 01/07/2022 mammogram - [facility], 04/14/2021 localization, 04/14/2021 localization, and 02/14/2021 ultrasound biopsy - [facility]. Both breasts are heterogeneously dense, which may obscure small masses (category c / 51-75% glandular tissue). The left breast has stable post-operative findings. The right breast has post-operative findings. No significant masses, calcifications, or other findings are seen in either breast. IMPRESSION: NEGATIVE There is no mammographic evidence of malignancy. A 1 year screening mammogram is recommended. Findings and recommendations were conveyed to the patient during today's evaluation. This exam was interpreted at Station ID: [id number]. NOTE: For mammograms, a report in lay terms will be sent to the patient. Approximately 15% of breast malignancies will not be visualized mammographically. In the management of a palpable breast mass, a negative mammogram must not discourage biopsy of a clinically suspicious lesion. Electronically Signed By: Rangel Herbert M.D. aty/:02/10/2024 14:08:58 ACR BI-RADS Category 1: Negative 3341F PARENCHYMAL PATTERN: (D) - The breast(s) demonstrate(s) heterogeneously dense fibroglandular almas ma. BI-RADS CATEGORY: (1) - 1 RECOMMENDATION: (ANNUAL) - Recommend routine annual screening mammography. [id number] 1 year screening LATERALITY: (B)
== END 2024-02-10 13:30 | disposition home or self-care (01) ==
LOC: DI 13:29
PROVIDERS: ATTEND Internal Medicine Hematology & Oncology
DX: C50.212 Malignant neoplasm of upper-inner quadrant of left female breast (principal); C50.812 Malignant neoplasm of overlapping sites of left female breast; R92.333 Mammographic heterogeneous density, bilateral breasts